=== PATIENT | male | born 1955 | race Caucasian/White ===

== ENCOUNTER 2016-12-10 10:11 | Outpatient (CLI) | payer OTHER ==
[~2016-12-10] VITALS: Ht 177.8 cm; Wt 120.9 kg
[~2016-12-10 10:11] MED LIST: ACTOS45 MG PO; ALDACTONE25 MG PO; ASPIR 8181 MG PO; CLARITIN10 MG PO; COLACE100 MG PO; CORICIDIN HBP1 EACH PO; CRANBERRY PO; DIOVAN HCT 3201 EACH PO; FEOSOL325 MG PO; FLOMAX0.4 MG PO; GLUCOPHAGE500 MG PO; HYTRIN1 MG PO; LANTUS SOL100 UNIT/1 SUB-Q; LEVAQUIN 250 M250 MG PO; LOPRESSOR50 MG PO; MAGNESIUM400 M1 PO; MICRONASE5 MG PO; MILK OF MA400 MG/5 M PO; MYLANTA (MAG-AL30 ML PO; NEURONTIN100 MG PO; NIASPAN500 MG PO; NORCO 5-325 MG1 TAB PO; NORVASC5 MG PO; OSTEO BI-FLEX1 EAC1 PO; PRILOSEC40 MG PO; PROAIR HFA8.5 GM INH; SLOW-MAG (64 MG1 TAB PO; THERAGRAN-M1 TAB PO; TYLENOL EXTRA500 MG PO; VITAMIN B-12500 MCG PO; VITAMIN C500 M1 PO; ZANTAC 7575 MG PO; ZOCOR40 MG PO
--- NOTE | 2016-12-10 11:17 | NUR ---
Patient is 61 yo male admitted for outpatient blood transfusions. received chemo therapy last Tuesday. has been having dizziness for a couple of weeks. has bladder cancer. patient's in 10/2014 from cancer after short time from diagnosis to . patient was diagnosed 1 month after 's . patient has port with access noted in right chest. no erythema or edema noted at site. education is given as documented. patient denies questions at this time. call light is within reach. report given to TREVOR Forrest.
--- NOTE | 2016-12-10 19:27 | NUR ---
Two units PRBCs administered with premedication of Benadryl, Tylenol, and Lasix. Patient tolerated well. Ate lunch. Voided x2. Up w/ family assist. Port de-accessed prior to d/c home w/no change in prior meds, appointments, and activity.
[2017-03-31] MEDS ORDERED: CULTURELLE1 CAP PO (17:16)
[2017-03-31] MEDS ORDERED: MAGNESIUM400 M1 PO (17:17)
[2017-04-07] MEDS ORDERED: DOXYCYCLINE100 MG PO (15:45)
[2017-04-07] MEDS ORDERED: VELTASSA8.4 GM PO (15:47)
[2017-05-17] MEDS ORDERED: CIPRO500 MG PO (15:17)
[2017-05-17] MEDS ORDERED: TYLENOL EXTRA500 MG PO (15:19)
== END 2016-12-10 18:00 | disposition disaster alternative care site (69) ==
LOC: GMSU 10:11 → GMIS 10:11
DX: C67.9 Malignant neoplasm of bladder, unspecified (principal); D70.1 Agranulocytosis secondary to cancer chemotherapy; R11.0 Nausea
CPT/HCPCS: J1200; J1940; J7050; P9016

== ENCOUNTER 2017-02-16 14:07 | Inpatient (IN) | payer OTHER ==
[~2017-02-16] VITALS: Ht 177.8 cm; Wt 119.0 kg
--- NOTE | ~2017-02-16 | CON ---
PATIENT'S NAME: FARIDA VINSON [facility] AGE: 61 Y [address] ROOM: [address] [address] LOCATION: [facility] [place] ADMIT DATE: 02/17/2017 Consultation DISCHARGE DATE: FAMILY PHYSICIAN: SHYANN MIKE ATTENDING PHYSICIAN: SLIM SINGH CONSULTATION NOTE ADDENDUM: Problem #8: Anemia, etiology most likely secondary to anemia of malignancy and chronic kidney disease. Also might have a component of acute blood loss anemia. The patient currently has hemoglobin of 9.8. No signs of active bleeding. We will acquire iron workup. We will hold p.o. iron supplement as the patient has ileus and will cause constipation. To start iron supplement, when ileus improves. MD MARY ROMERO/armando /[id number] d: 02/19/17 1703 t: 02/20/17 0843, CONSULTATION REPORT
--- NOTE | ~2017-02-16 | CON ---
PATIENT'S NAME: FARIDA VINSON [facility] AGE: 61 Y [address] ROOM: [place] [address] LOCATION: [facility] [place] ADMIT DATE: 02/17/2017 Consultation DISCHARGE DATE: FAMILY PHYSICIAN: SHYANN MIKE ATTENDING PHYSICIAN: SLIM JAFFE CONSULTATION NOTE CHIEF COMPLAINT/REASON FOR CONSULTATION: Invasive urothelial carcinoma. HISTORY OF PRESENT ILLNESS: The patient is a 61-year-old gentleman with past medical history of hypertension; nonobstructive CAD; diabetes mellitus; chronic kidney disease, stage 3; and invasive urothelial carcinoma of the bladder, who presents here for surgical intervention for his invasive urothelial carcinoma of the bladder with Dr. Jaffe. The patient has a history of bladder cancer and was recently on chemotherapy and was admitted to our hospital on for creation of ileal conduit with urinary diversion with bilateral urethral re- implantations and also laparoscopic radical cystoprostatectomy. The patient tolerated the procedure well and was admitted to general medical floor for further care. The patient tolerated the procedure well. Had some ileus after surgery. The patient is ambulating without limitation. Has not had a bowel movement and has not had pass of gas for the past 2 days. Denies any nausea or vomiting, chest pain, fever, chills, or productive cough. He has mild abdominal pain around the surgical incision. However, treated adequately with his ENTRY LEVEL ACCOUNT EXECUTIVE. PAST MEDICAL HISTORY: 1. Hypertension. 2. Coronary artery disease, nonobstructive. 3. Diabetes mellitus, type 2. 4. Chronic kidney disease, stage 3. 5. Hyperlipidemia. 6. Bladder cancer. PAST SURGICAL HISTORY: 1. History of transurethral resection of bladder. 2. Recent creation of ileal conduit with urinary diversion with bilateral urethral re-implantations. FAMILY HISTORY: Father had prostate cancer. Mother had breast cancer. 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 Denies smoking. PATIENT'S NAME: FARIDA VINSON [facility] AGE: 61 Y [address] ROOM: [place] [address] LOCATION: [facility] [place] ADMIT DATE: 02/17/2017 Consultation DISCHARGE DATE: FAMILY PHYSICIAN: SHYANN MIKE ATTENDING PHYSICIAN: SLIM JAFFE MEDICATIONS: Please see MAR. REVIEW OF SYSTEMS: All systems have been reviewed and are negative except for what I mentioned in the HPI. PHYSICAL EXAMINATION: VITAL SIGNS: Temperature of 99.0, blood pressure of 144/75, heart rate 85, and respiratory rate 19. GENERAL APPEARANCE: The patient is alert and awake, lying on the bed. Using his incentive spirometer. The patient does not appear in acute distress. HEENT: Head; normocephalic and atraumatic. Eyes; sclerae nonicteric. Oral cavity; dry oral mucosa. Ears; no ear discharge. Nose; no nasal discharge. HEART: Regular rate and rhythm. No murmurs, rubs, or gallops. CHEST: Clear to auscultation bilaterally. ABDOMEN: Mild tenderness around the surgical incision. Surgical incision is clear, dry, and intact. Drain in place and ileal conduit also in place. Bowel sounds active. No guarding. No rebound tenderness. SKIN: Warm to touch. MUSCULOSKELETAL: Range of motion intact. No obvious joint effusion. ORACLE SOFTWARE ENGINEER: The patient is alert and oriented x3. Motor and sensory grossly intact. LABORATORY DATA: White blood cell count of 13.4, hemoglobin of 9.8, and platelets of 132,000. Potassium of 5.3, sodium of 139, creatinine of 1.8, BUN of 32, and CO2 of 23. Hemoglobin A1c of 8. ASSESSMENT AND PLAN: 1. Hyperkalemia. Potassium of 5.3. The patient with a history of chronic kidney disease with the recent surgery. Chronic kidney disease, stage 3. His creatinine is 1.8. The patient noted to have a potassium of 5.3. Etiology most likely secondary to use of spironolactone and ARB. We will discontinue valsartan and spironolactone. Check renal function panel in a.m. and to continue IV fluids. 2. Hypertension. Currently stable but, however, we will discontinue valsartan and spironolactone due to hyperkalemia and also discontinue hydrochlorothiazide as patient is receiving IV fluids and also hydrochlorothiazide; function decreases with chronic kidney disease. We will start the patient on amlodipine, to continue Lopressor. We will place on hydralazine as a p.r.n. 3. Diabetes mellitus, type 2. Hemoglobin A1c of 8. Currently Accu-Chek is stable. The patient is currently n.p.o. and on glyburide. We will PATIENT'S NAME: FARIDA VINSON [facility] AGE: 61 Y [address] ROOM: [id number] [place] [address] LOCATION: [facility] [place] ADMIT DATE: 02/17/2017 Consultation DISCHARGE DATE: FAMILY PHYSICIAN: SHYANN MIKE ATTENDING PHYSICIAN: SLIM JAFFE discontinue glyburide as patient is n.p.o. due to ileus. We will discontinue glyburide as patient is n.p.o. and for fear of hypoglycemic event. We will start the patient on his home medication of detemir. However, we will change it to 10 units instead of 15 units. We will start detemir 10 units at bedtime. Continue sliding scale. 4. Chronic kidney disease, stage 3. Creatinine 1.8 etiology most likely secondary to history of obstructive uropathy and diabetes mellitus, type 2. 5. Ileus most likely secondary to recent surgery. Abdomen is soft. Bowel sounds present. The patient is currently n.p.o. We will change IV fluids to D5 half. 6. Deep venous thrombosis prophylaxis. We will start the patient on heparin 5000 units b.i.d. 7. Diabetic neuropathy. Continue gabapentin. 8. Bladder cancer status post resection and ileal conduit. We will discontinue terazosin. Management per primary team. Greater than 50 minutes were spent in the patient's care. 50% of the time was spent on direct patient's care and consultation with Dr. Jaffe and primary physician. Assessment and plan was discussed with family and the patient. All questions were answered with satisfaction. MD MARY ROMERO/faithl /[id number] d: 02/19/171728 t: 02/26/171748, CONSULTATION REPORT
--- NOTE | ~2017-02-16 | DS ---
PATIENT'S NAME: FARIDA VINSON [facility] AGE: 61 Y [address] ROOM: [address] [address] [place] [facility] [place]: 02/17/2017 Discharge Summary DISCHARGE DATE: 02/26/2017 FAMILY PHYSICIAN: Crys Urena ATTENDING PHYSICIAN: Slim Singh ADMISSION DIAGNOSIS: Muscle invasive urothelial carcinoma of bladder. DISCHARGE DIAGNOSIS: Muscle invasive urothelial carcinoma of bladder. REASON FOR HOSPITALIZATION: The patient is a pleasant 61-year-old male, who was diagnosed with muscle invasive urothelial carcinoma. He did undergo neoadjuvant chemotherapy. The patient was explained the risks, benefits, indications, and alternatives, and wished to proceed with a radical cystectomy. PROCEDURES PERFORMED: 1. Robotic-assisted laparoscopic radical cystoprostatectomy. 2. Robotic-assisted laparoscopic bilateral pelvic lymph node dissection. 3. Creation of ileal conduit urinary diversion with bilateral ureteral reimplantation. HOSPITAL COURSE: The patient was admitted on the above date and underwent the above-stated procedures. His hospital course was uneventful, and prior to discharge, he was having bowel function, pain was well controlled, and tolerating regular diet. CONDITION OF THE PATIENT ON DISCHARGE: Good. DISCHARGE INSTRUCTIONS: The patient received routine discharge instructions for the above-stated procedure. SLIM SINGH MD GP/modl /[id number] d: 03/01/17 0752 t: 03/02/17 1050, DISCHARGE SUMMARY
--- NOTE | ~2017-02-16 | OR ---
PATIENT'S NAME: FARIDA VINSON [facility] AGE: 61 Y [address] ROOM: [address] [address] [place] [facility] [place]: 02/17/2017 OR/Procedure Report DISCHARGE DATE: FAMILY PHYSICIAN: SHYANN MIKE ATTENDING PHYSICIAN: SLIM JAFFE SURGEON: Slim Jaffe MD DIRECTOR BUSINESS INTELLIGENCE: Vignesh Loaiza M.D. DATE OF PROCEDURE: 02/17/2017 PREOPERATIVE DIAGNOSIS: Invasive urothelial carcinoma of the bladder. POSTOPERATIVE DIAGNOSIS: Invasive urothelial carcinoma of the bladder. OPERATIONS/PROCEDURES PERFORMED: 1. Robotic-assisted laparoscopic radical cystoprostatectomy. 2. Robotic-assisted laparoscopic bilateral pelvic lymph node dissection. 3. Creation of ileal conduit, urinary diversion with bilateral ureteral reimplantation. ANESTHESIA ADMINISTERED: General endotracheal anesthesia. INDICATIONS FOR PROCEDURE: The patient is a pleasant 61-year-old male, who was recently diagnosed with muscle invasive urothelial carcinoma. He did recently undergo completion of neoadjuvant chemotherapy. The patient was explained the risks, benefits, indications, and alternatives to the above procedure and wished to proceed and consented freely. DESCRIPTION OF OPERATION: The patient was brought back to the operating room where he was placed on the OR table in the supine position. A surgical time- out was called where patient identification, surgical site, and procedure were then verified. We also did verify that the patient received an IV antibiotic within an hour of beginning the procedure. The patient then underwent successful administration of general endotracheal anesthesia. The patient was then moved and placed in a low lithotomy position. He was then prepped and draped in the usual sterile fashion using a Hibiclens prep for the genital area and a chlorhexidine prep for his abdomen. The patient was then placed in steep Trendelenburg. Also, Anesthesia did place an NG tube. A Quintero catheter was placed per urethra. I began by making a supraumbilical incision. The rectus fascia was grasped and elevated, and we pierced the peritoneum with a Veress needle and insufflated to 15 mmHg. We then passed an 8 mm non-bladed trocar easily into the peritoneum. We immediately passed the laparoscope and did not observe any injury to internal structure, so we placed additional trocars in the routine positions for the robotic cystectomy technique including an 8 mm and 12 mm trocar in the left abdomen as well as an 8 mm and 12 mm trocar in the right abdomen. The da Mitzi Xi robot was then docked and PATIENT'S NAME: FARIDA VINSON [facility] AGE: 61 Y [address] ROOM: [address] [place] [id number] [place] [facility] [place]: 02/17/2017 OR/Procedure Report DISCHARGE DATE: FAMILY PHYSICIAN: SHYANN MIKE ATTENDING PHYSICIAN: SLIM JAFFE used for the remainder of this portion of the procedure. I began by first incising the peritoneum deep in the rectovesical pouch. I immediately identified the vas deferens and seminal vesicles and these organs were carefully dissected free. I then swept the perirectal fat off the posterior aspect of the prostate. I then turned my attention to mobilizing the right ureter, which was identified crossing just over the iliac vessels. The ureter was then freed down to the level of the bladder and Weck clips were placed and the ureter was divided at the level of the bladder. I did send off a distal margin of the right ureter for frozen section analysis, which came back negative for malignancy. I then incised the peritoneum lateral to the medial umbilical ligaments on the right side as well as dissecting down to the endopelvic fascia. I then turned my attention to the right bladder vascular pedicle and this was carefully taken down with a robotic laparoscopic stapling device. I continued this dissection down along the base and right lateral aspect of the prostate taking care to sweep off some of the levator musculature. The bladder pedicle was now completely divided on the right. I then turned my attention to the left hand side. The left ureter was freed down to the level of the bladder after it was identified just crossing over the iliac vessels. Once that was freed up down to the bladder, Weck clips were placed and the ureter was divided at the level of the bladder. I also did send off a distal margin of the left ureter for frozen section analysis, which came back negative for malignancy. I then incised the peritoneum lateral to the medial umbilical ligaments on the left side as well as dissecting down to the endopelvic fascia. I then turned my attention to the left bladder vascular pedicle and this was carefully divided using the laparoscopic stapling device. This dissection was continued down along the base and left lateral aspect of the prostate taking care to sweep off some of the levator musculature. I then continued on by mobilizing the bladder and divided the urachus with electrocautery. I continued in the space of Retzius until I identified the periprosthetic fat. The endopelvic fascia was incised on the lateral dissections. Any remaining levator musculature was swept off the prostate from base to apex. I then proceeded to dissect down to the prostatic apex. Vascular control of the dorsal venous complex was obtained using the robotic laparoscopic stapling device. After we completely divided the dorsal venous complex, hemostasis again appeared to be adequate and I further dissected down isolating the urethra. I then divided the urethra distal to the prostatic apex. The remaining attachments to the apical prostate were then divided and then now we had the prostate and bladder completely freed and detached. I inspected for hemostasis, which was adequate. There did not appear to be any injury to surrounding structures including the rectum. I then turned my attention to perform a bilateral pelvic lymph node dissection. The borders out laterally included the genitofemoral nerve and superiorly to the branching of the common iliac vessels, then carrying this down inferiorly to the obturator nerve taking care to preserve the nerve itself. The dissection was further carried out to the PATIENT'S NAME: FARIDA VINSON [facility] AGE: 61 Y [address] ROOM: [place] [address] [place] [facility] [place]: 02/17/2017 OR/Procedure Report DISCHARGE DATE: FAMILY PHYSICIAN: SHYANN MIKE ATTENDING PHYSICIAN: SLIM JAFFE of the ramona of Raghavendra. The lymph node packets were labeled and retrieved and sent for pathologic analysis. I then began by creating a tunnel for the left ureter along the sacral promontory underneath the colonic mesentery. The ureter was then pulled through the tunnel. We had created and it appeared that we had adequate length on the left ureter after it was mobilized. A suture tag was then placed on the left ureter. We then undocked the robot and lengthened our supraumbilical incisions, carrying this incision down around the umbilicus and opened up the fascia. We then removed the remaining specimen including the bladder, prostate, seminal vesicles, and pelvic lymph nodes. I also did place a ANDERS drain in the left 8 mm port site. We then brought the ureters up through our open incision as well as brought his ileum up through the incision. The ileocecal valve was identified. We pulled up a segment of the terminal ileum leaving approximately 15 cm to the ileocecal valve with a good arcade of blood vessels to the terminal segment. The mesentery was divided at that level. The ilium was stable. We then moved approximately 15 cm cephalad along the small bowel. The mesentery was divided at that level making sure that we had a good arcade to the conduit. Once again, the KYRA stapler was fired and the ileal segment was isolated. We then reestablished bowel continuity in our usual fashion using a KYRA stapler between the 2 limbs and a TA stapler across the top giving us a [id number] anastomosis. Stay sutures were placed at the end of the staple line. The mesenteric defect was also closed with a running Vicryl suture. We had a nice palpable anastomosis here. Attention was now turned to the ureteroileal anastomosis. The ureters were freshened up and spatulated. Using interrupted 4-0 Vicryl sutures, the ureteroileal anastomosis was completed bilaterally. The right and left ureters were anastomosed identically and gave a nice open anastomosis. A stoma had been previously marked. At that level, the skin and subcutaneous tissues were excised down to the fascia. The fascia was then incised in a cruciate fashion and we had room for 2 fingers. Stay sutures were placed at the level of the fascia with interrupted 2-0 Vicryl sutures. The distal end of the conduit was then brought out through the ostomy, being careful not to twist or put any tension on the anastomosis. It was then secured with the above-noted sutures. Of note, we also oversewed the staple line of the end of the conduit to keep the staple line out of contact with urine. The stoma was then matured in a miccosukee fashion using Vicryl suture. We had a nice healthy- appearing stoma putting out copious amounts of urine. A Candido-Whittington drain was then left in the pelvis and the abdominal incision was closed. Of note, the fascia had been closed with the PDS running suture and the skin with subcuticular suture, then covered with Dermabond. Local anesthetic was injected to all incision sites. The patient did tolerate the procedure well. The patient was then awoken from general anesthesia, where he was then extubated and transported to the recovery room in good condition. PATIENT'S NAME: FARIDA VINSON [facility] AGE: 61 Y [address] ROOM: [address] [address] [place] [facility] [place]: 02/17/2017 OR/Procedure Report DISCHARGE DATE: FAMILY PHYSICIAN: SHYANN MIKE ATTENDING PHYSICIAN: SLIM JAFFE COMPLICATIONS: None. ESTIMATED BLOOD LOSS: 200 mL. DRAINS: Indwelling ANDERS drain to bulb suction. FOLLOWUP PLAN: We will plan to admit the patient to the hospital to await return of bowel function prior to discharge home. SLIM JAFFE MD GP/faithl /[id number] CC: MD Bebeto Greene MD Kristen Dunbar, PA d: 02/18/170 t: 02/18/172054, OPERATIVE SUMMARY
--- NOTE | ~2017-02-16 | PUL ---
PATIENT'S NAME: FARIDA VINSON [facility] AGE: 61 Y [address] ROOM: [address] [address] [place] [facility] [place] 02/17/2017 Pulmonary DISCHARGE DATE: 02/26/2017 FAMILY PHYSICIAN: Crys Urena ATTENDING PHYSICIAN: Madi Jaffe NAME OF PROCEDURE: Overnight Pulse Oximetry DATE OF PROCEDURE: February 25 to February 26, 2017 REASON FOR EXAM: Nocturnal hypoxemia RESULTS: The test was performed on room air. The recording time was 10 hours, 24 minutes, and 16 seconds, with a total valid sampling time of 10 hours, 21 minutes, and 44 seconds. The highest pulse was 83, lowest pulse was 58, with a mean pulse of 69. The highest SpO2 was 100%, lowest SpO2 was 84%, with a mean SpO2 of 95%. The patient spent 1 minute and 4 seconds with SpO2 less than 89%, representing 0.2% of the total sleep time. The desaturation event index was normal at 2.5. PHYSICIAN INTERPRETATION: The patient does not have evidence of significant nocturnal hypoxia and would not qualify for supplemental oxygen as per Medicare criteria. MD LISETTE BAKER/merlin /[id number] dtt: 03/03/17 0729 , WANDA HERNANDEZ dtd: 03/02/17 1128
[2017-02-16] MEDS ORDERED: LEVEMIR FL100 UNIT/1 SUB-Q (14:45)
[2017-02-16] MEDS ORDERED: SANCTURA 20MG20 MG PO (14:47)
[2017-02-16] MEDS ORDERED: STOOL SOFTENER100 M1 PO (14:50)
[2017-02-16] MEDS ORDERED: CLARITIN10 MG PO (14:55)
[2017-02-16] MEDS ORDERED: SYSTANE 0.3-0.440 ML OPHTH (14:56)
[2017-02-16] MEDS ORDERED: ASPIRIN EC81 MG PO (15:41)
--- NOTE | 2017-02-17 17:15 | NUR ---
Patient arrived from surgery at 1440 to room 3206. Sleepy but arousable. VSS, on 3L O2 upon arrival but decreased to 2L. ANDERS drain had 65ml out since arrival. NG to L) nare, LIS, no output. Ileo conduit has drips of output, not charted in output. Midline incision, and port sites glued. ACHS accuchecks, mild sliding scale. Needs to ambulate 5 times a day, will get up to stand this shift.
--- NOTE | 2017-02-18 02:11 | NUR ---
SIGNIFICANT EVENT: Mildly hypertensive - 141 to 142 over 70 to 75, other VSS on 2L. Morphine REFINING ENGINEER demand only - 1 mg demand bolus, 8 minute lockout. 270 out of ANDERS so far. NPO with sips of water with pills. NG to L) nare to low intermittent suction, stop suction during and 1/2 hour after oral meds. Bladder and prostate ca is reason for this surgery - 2 glue sites to bilateral mid abd. Midline incision - all glued. PIV to L) lateral FA infusing NS at 125. Pleasant and cooperative with cares.
[2017-02-18 05:30] LABS: BASOPHIL % 0.1 %; EOSINOPHIL # 0.1 K/uL (0.0-0.5); EOSINOPHIL % 0.7 %; HEMATOCRIT 31.6 % (37.0-53.0); HEMOGLOBIN 10.3 g/dL (11.0-16.0); IMMATURE GRANULOCYTE # 0.1 K/uL (0.0-0.3); IMMATURE GRANULOCYTE % 0.8 %; LYMPHOCYTE # 0.6 K/uL (0.8-4.0); LYMPHOCYTE % 3.8 %; MCHC 32.6 gm/dL (32.0-36.5); MCV 101.3 fl (83.0-98.0); MONOCYTE # 1.6 K/uL (0.0-1.0); MPV 9.2 fl (9.4-12.4); NEUTROPHIL # (ANC) 13.1 K/uL (1.4-9.0); NEUTROPHIL % 84.6 %; NRBC % 0 /100WBC (0-0.00); PLATELET COUNT 147 K/uL (150-450); RBC 3.12 M/uL (3.50-5.50); RDW-CV 15.4 % (11.9-14.6); WBC 15.6 K/uL (4.0-11.0)
[2017-02-18 05:45] LABS: ANION GAP 12.8 (10.0-19.0); CALCIUM 7.6 mg/dL (8.5-10.5); CREATININE 1.9 mg/dL (0.6-1.3); POTASSIUM 4.8 mMol/L (3.7-5.1)
--- NOTE | 2017-02-18 10:54 | NUR ---
Diabetes center note: 1030 Visited with patient and daughter regarding Diabetes management. Current A1C is 8% 02/18/17. Patient recently has received chemo for his bladder cancer and 02/17/17 under went surgery for ileal conduit, patient reports that he has been under "alot of physical stress". Does have a meter at home and occasionally checks his blood sugars, recommended that patient increase frequency of testing blood sugars, and rational for obtaining and maintaining proper control of sugars to assist in reducing risks of complications related to diabetes, heart, eyes, kidneys, nerves. Patient states understanding. Patient has seen Nayana Thompson RN at [facility] in [place], [place] for Diabetes Education and agrees to continue to follow up with her after dismissal. 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 Patient has been taking Levemir 30 units daily at home and Micronase 10 mg daily. CDE states that because of health issues and physical stress, we may need to add a rapid acting insulin, Novolog to his home insulin regimen also. Diabetes management booklet provided to review and Survival skills checklist is provided to daughter and patient to complete, anticipate patient will be here several days, will continue to trend blood sugars and assess educational needs.
--- NOTE | 2017-02-18 11:15 | NUR ---
SPOKE TO PATIENT AND DAUGTHER ENDY,REGARDING CM AND OUR ROLE. PATIENT LIVES ALONE IN OWN HOME HIS DAUGHTER ENDY AND FAMILY LIVE NEAR BY AND THEY ARE PLANNING ON CHEKCING ON HIM ONCE HE GETS HOME AND CAN HELP HIM NEEDED. PATIENT DOES NOT ANTICIPATE ANY DISCHARGE NEEDS AT THIS TIME. CM WILL FOLLOW NEEDED.
--- NOTE | 2017-02-18 13:44 | NUR ---
Diabetes Center note: 1300 Patient is currently sleeping and daughter states they have not started working on the Survival Skills checklist. CDE offered to assist them, but they refuse at this time, Will check with patient next week to assess educational needs, as we anticipate patient will be here several days
--- NOTE | 2017-02-18 17:42 | NUR ---
Patient is alert and oriented, VSS, on 1L O2. NG tube is clamped, residual can be checked Q4 hours but not while he is sleeping. Morphine DIRECTOR OF OPERATIONS FOR THERAPY is set at demand only with 12 deliveries with 14 attempts. Had 205 out of his ANDERS and 725 out of his ileo conduit. ACHS accuchecks with no insulin given so far. OT and PT consulted and walked the patient to the door and back, he also was up in the chair for the majority of the day. Will take pills with sips of water, got a little nauseous with AM meds, has had no nausea since then. Possible DC of NG tube tomorrow.
--- NOTE | 2017-02-19 01:56 | NUR ---
SIGNIFICANT EVENT: Patient alert & oriented. Hypertensive - 159 to 182 over 79 to 83. HR 95 to 100. 93 to 98 on 1.5L. 98.9 to 99.9 oral temp. NG discontinued at approx 1900. NPO - sips of water with pills only. Midline incision and 2 upper abd lap sites glued. Ileoconduit draining pale pink urine. ANDERS has and 190 out so far this shift. Morphine SQL SERVER DBA has 1 mg demand only with 8 minute lockout. Moved back to chair at approx 0030. Daughter at bedside throughout shift. Pleasant and cooperative with cares.
[2017-02-19 05:52] LABS: BASOPHIL # 0.1 K/uL (0.0-0.2); BASOPHIL % 0.4 %; EOSINOPHIL # 0.2 K/uL (0.0-0.5); EOSINOPHIL % 1.7 %; HEMATOCRIT 30.5 % (37.0-53.0); HEMOGLOBIN 9.8 g/dL (11.0-16.0); IMMATURE GRANULOCYTE # 0.2 K/uL (0.0-0.3); IMMATURE GRANULOCYTE % 1.3 %; LYMPHOCYTE # 0.8 K/uL (0.8-4.0); LYMPHOCYTE % 6.2 %; MCH 32.8 pg (27.0-34.0); MCHC 32.1 gm/dL (32.0-36.5); MONOCYTE # 1.7 K/uL (0.0-1.0); MONOCYTE % 12.8 %; MPV 9.5 fl (9.4-12.4); NEUTROPHIL # (ANC) 10.4 K/uL (1.4-9.0); NEUTROPHIL % 77.6 %; NRBC % 0 /100WBC (0-0.00); PLATELET COUNT 132 K/uL (150-450); RBC 2.99 M/uL (3.50-5.50); RDW-CV 15.1 % (11.9-14.6); WBC 13.4 K/uL (4.0-11.0)
[2017-02-19 06:05] LABS: ANION GAP 12.3 (10.0-19.0); CALCIUM 8.1 mg/dL (8.5-10.5); CREATININE 1.8 mg/dL (0.6-1.3); POTASSIUM 5.3 mMol/L (3.7-5.1)
--- NOTE | 2017-02-19 16:53 | NUR ---
Significant Event: Pt continues to have the BOX OFFICE MANAGER. Etco2 have been 37-41. He is on room air, maintaining O2 sat of 90-96%. He rates his pain a 1-3 today. He has a ha felder drain to left lower abdomen. It has had 930ml of thin berry to dk pink fluid out. Dr. Jaffe notified of increased in output during his rounds this am. He states, "That is to be expected." Drsg to ANDERS was saturated and was changed. PT had a bath and shave. PT has a ileoconduit to right lower abdoment. Stoma pink and wnl. He had 1500ml out of yellow urine. His groin is reddened and excoriated. Nystatin powder ordered. He remains npo but has sips of water with his meds without increased nausea or pain. Bowel sounds were hypo to now present. He is belching but no flatus yet. Follow up:
--- NOTE | 2017-02-20 03:59 | NUR ---
Significant Event: Patient has done well, ambulated in hallway and stood at bedside. Had 2000 out of webber and 350 out of ANDERS drain. Used 9 demands of his morphine REPAIRER WELDING EQUIPMENT. Rating pain at 2. 02 at 1 liter, tried to titrate but 02 dipped so had to resume. No complaints of nausea. Slept in bed part of the night and in chair most of the night. Groin area very red and excoriated. Follow up:Continue to encourage activity.
[2017-02-20 05:18] LABS: BASOPHIL % 0.4 %; EOSINOPHIL # 0.3 K/uL (0.0-0.5); EOSINOPHIL % 2.2 %; HEMATOCRIT 29.4 % (37.0-53.0); HEMOGLOBIN 9.1 g/dL (11.0-16.0); IMMATURE GRANULOCYTE # 0.2 K/uL (0.0-0.3); IMMATURE GRANULOCYTE % 1.4 %; LYMPHOCYTE % 9.1 %; MCH 31.7 pg (27.0-34.0); MCV 102.4 fl (83.0-98.0); MONOCYTE # 1.6 K/uL (0.0-1.0); MONOCYTE % 13.9 %; MPV 9.4 fl (9.4-12.4); NEUTROPHIL # (ANC) 8.2 K/uL (1.4-9.0); NRBC % 0 /100WBC (0-0.00); PLATELET COUNT 133 K/uL (150-450); RBC 2.87 M/uL (3.50-5.50); RDW-CV 14.6 % (11.9-14.6); WBC 11.2 K/uL (4.0-11.0)
[2017-02-20 05:43] LABS: ALBUMIN 2.4 gm/dL (3.5-5.0); ANION GAP 10.9 (10.0-19.0); CALCIUM 8.7 mg/dL (8.5-10.5); CREATININE 1.6 mg/dL (0.6-1.3); POTASSIUM 4.9 mMol/L (3.7-5.1); TOTAL BILIRUBIN 0.5 mg/dL (0.0-1.5); TOTAL PROTEIN 5.9 g/dL (6.0-8.4)
--- NOTE | 2017-02-20 18:52 | NUR ---
Significant Event: Pt has rounded abdomen but does have some bowel sounds. Ileoconduit to right lower abdomen, 1700ml of urine output. He had 400ml of thin yellowish/red drainage from ANDERS drain. Pt continues to have Morphine INSTRUMENT FITTER infusing without difficulty. Pt rated his pain "1"-"3". Pt ambulated in the pascual and sat in recliner. Blood sugars have been 194, 216, and 164. Home glyburide dose resumed. Pt has an IV port in left chest.
--- NOTE | 2017-02-21 05:05 | NUR ---
Significant Event: Patient ambulated in hallway x 1, stood at side of bed and then went to chair with 1-2 assist. Has a EMAIL MARKETING MANAGER to demand only and has used 9 demands this shift. Alert and orientated, pleasant and cooperative with cares. 1250 out of ilestomy and 380 out of ANDERS drain. Still NPO, except for sips for po medications. Denies nausea. Accucheck at HS was 146. Bilateral groin reddened and excoriated. Follow up: Continue to monitor.
[2017-02-21 05:26] LABS: BASOPHIL # 0.1 K/uL (0.0-0.2); BASOPHIL % 0.7 %; EOSINOPHIL # 0.3 K/uL (0.0-0.5); EOSINOPHIL % 3.5 %; HEMATOCRIT 31.2 % (37.0-53.0); HEMOGLOBIN 9.2 g/dL (11.0-16.0); IMMATURE GRANULOCYTE # 0.2 K/uL (0.0-0.3); IMMATURE GRANULOCYTE % 2.2 %; LYMPHOCYTE # 0.9 K/uL (0.8-4.0); MCH 31.8 pg (27.0-34.0); MCHC 29.5 gm/dL (32.0-36.5); MONOCYTE # 1.2 K/uL (0.0-1.0); MONOCYTE % 12.8 %; MPV 9.8 fl (9.4-12.4); NEUTROPHIL # (ANC) 6.6 K/uL (1.4-9.0); NEUTROPHIL % 70.8 %; NRBC % 0 /100WBC (0-0.00); RBC 2.89 M/uL (3.50-5.50); RDW-CV 14.5 % (11.9-14.6); WBC 9.2 K/uL (4.0-11.0)
[2017-02-21 05:29] LABS: PLATELET COUNT 179 K/uL (150-450)
[2017-02-21 05:44] LABS: ALBUMIN 2.4 gm/dL (3.5-5.0); ANION GAP 10.9 (10.0-19.0); CALCIUM 8.7 mg/dL (8.5-10.5); CREATININE 1.6 mg/dL (0.6-1.3); POTASSIUM 4.9 mMol/L (3.7-5.1); TOTAL BILIRUBIN 0.5 mg/dL (0.0-1.5); TOTAL PROTEIN 6.1 g/dL (6.0-8.4)
--- NOTE | 2017-02-21 08:30 | NUR ---
Diabetes consult: Patient's blood sugars controlled with fasting value in the 140's. The patient is currently sleeping. Will continue to follow.
--- NOTE | 2017-02-21 16:59 | NUR ---
Significant Event: Ambulates with one assist. Morhine LABEL CODER with 12 demands/12 deliveries. Iliostomy with clear yellow urine. ANDERS with large amount serosanginous drainage. Accuchecks ACHS. BM last 6-15, Hypotensive bowel sounds. Remains NPO, may have sips of water when taking medications. Follow up:
--- NOTE | 2017-02-22 02:29 | NUR ---
SIGNIFICANT EVENT: Pt alert & oriented. Mild htn 145 to 150 over 72 to 77, other VSS - RA while awake, 1.5L at HS. IV to L) FA infusing D51/2 at 50. HS levemir held last night for HS BG of 84. NPO and sips of H2O only with meds. 1PA to ambulate/transfer. Morphine DEPARTMENT OF NATURAL RESOURCES OFFICER - 1 mg demand only, 8 min. lockout, no bolus and no max. Dressing change to ANDERS site - L) abd, has had 395 out so far this shift. Ileoconduit draining yellow urine. Pleasant and cooperative with cares.
[2017-02-22 05:04] LABS: BASOPHIL # 0.1 K/uL (0.0-0.2); BASOPHIL % 0.9 %; EOSINOPHIL # 0.4 K/uL (0.0-0.5); HEMATOCRIT 28.9 % (37.0-53.0); HEMOGLOBIN 9.1 g/dL (11.0-16.0); IMMATURE GRANULOCYTE # 0.4 K/uL (0.0-0.3); IMMATURE GRANULOCYTE % 4.3 %; LYMPHOCYTE % 10.7 %; MCHC 31.5 gm/dL (32.0-36.5); MONOCYTE # 1.3 K/uL (0.0-1.0); MONOCYTE % 13.6 %; MPV 9.5 fl (9.4-12.4); NEUTROPHIL # (ANC) 6.1 K/uL (1.4-9.0); NEUTROPHIL % 66.5 %; NRBC % 0 /100WBC (0-0.00); PLATELET COUNT 166 K/uL (150-450); RBC 2.84 M/uL (3.50-5.50); RDW-CV 14.3 % (11.9-14.6); WBC 9.2 K/uL (4.0-11.0)
[2017-02-22 05:07] LABS: MCV 101.8 fl (83.0-98.0)
[2017-02-22 05:25] LABS: ALBUMIN 2.2 gm/dL (3.5-5.0); ANION GAP 8.7 (10.0-19.0); CALCIUM 8.9 mg/dL (8.5-10.5); CREATININE 1.8 mg/dL (0.6-1.3); POTASSIUM 4.7 mMol/L (3.7-5.1); TOTAL BILIRUBIN 0.6 mg/dL (0.0-1.5); TOTAL PROTEIN 5.8 g/dL (6.0-8.4)
--- NOTE | 2017-02-22 16:20 | NUR ---
A-SCREENED D/T LOS S/P ILEAL CONDUIT. 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 PER CHART REVIEW; POST-OP ILEUS. (+)BS; LITTLE FLATUS. TAKING PO MEDS W/A SMALL AMOUNT OF WATER. NO C/O NAUSEA. HT: 70 IN. WT: 119.0 KG. BMI: 37.6 LABS: NA 141, K+ 4.7, GLU 86, BUN 31, LATHMAKER 1.8, ALB 2.2 MEDS: ZOFRAN, MORPHINE, PEPCID, D5, APRESOLINE, PROTONIX, COLACE, NEURONTIN, NOVOLOG (MILD SS). DIET RX: NPO (DAY #5) EST NUTR NEEDS: 1285-7210 KCALS (15-20 KCALS/KG) 113-150 GM PROTEIN (1.5-2.0 GM/KG) 1 ML FLUID/KCAL D-AT NUTRITION RISK R/INADEQUATE ORAL INTAKE R/T ALTERED GI FXN AEB RECENT SURGERY, NPO STATUS. I-IF ORAL DIET CANNOT BE RESUMED WITHIN 24-48 HOURS, RECOMMEND ALTERNATE ROUTE OF NUTRITION. M/E-GOAL: START PO DIET WITHIN 24-48 HOURS 1)F/U GI, DIET RX, AND POC IN 2 DAYS 2)ASSIST NEEDED
--- NOTE | 2017-02-22 16:37 | NUR ---
Significant event: Pt. is A&Ox3, VSS, titrated to RA at beginning of shift. On morphine ONLINE TUTOR 1 demand, 8 minute lockout, 7 demands/7 deliveries. L)FA IV infusing 50 D51/2NS. Remains NPO with sips for medications. No flatus, no bowel movement, active bowel sounds. Has ambulated through hallways 3x so far this shift. Up to chair for meals. ANDERS has 610 out, 1250 out of ileoconduit. Has R)port that is not accessed. Midline incision, 2 lap sites glued, open to air. Nystatin to scrotum, elevated for edema. New order to d/c glyburide and hold levemir. WOC supplies at bedside. Pt. using IS when awake. Daughter at bedside much of shift, left at 1630. Slept on and off throughout day.
--- NOTE | 2017-02-23 04:09 | NUR ---
Significant Event: Patient alert and oriented X4. Up with one person assist, walker and gait belt. NPO with mouth swabs and able to take sips with meds. Illeoconduit to R) abdomen hooked to webber bag. ANDERS 330 out. Morphine COVER REMOVER pump 6 deliveries 8 demands. 1mg demand 8 min lockout. Woc to change illeoconduit. Midline incision with 2 lap sites. Scrotal elevation. Not passing gas. Goal is to ambulate five times. Walked twice this shift. IV to L) forearm. Not passing gas yet. Follow up: Monitor bowel sounds
[2017-02-23 04:54] LABS: ALBUMIN 2.4 gm/dL (3.5-5.0); ANION GAP 11.9 (10.0-19.0); CALCIUM 9.1 mg/dL (8.5-10.5); CREATININE 1.8 mg/dL (0.6-1.3); POTASSIUM 4.9 mMol/L (3.7-5.1); TOTAL PROTEIN 6.4 g/dL (6.0-8.4)
--- NOTE | 2017-02-23 16:27 | NUR ---
Significant Event: Patient alert and oriented x3. VSS on RA. IV to the L)FA infusing 50 D51/2NS. Has R) chest port but is not accessed. On morphine BRIM ROUNDER-1mg demand only with 8 minute lockout. Patient had 5 demands with 5 deliveries for a total of 5mg of morphine this shift. ANDERS to left abdomen with 490 out. Ilileoconduit to right abdomen-connected to catheter bag with 900 out. ACHS ACCU checks today were 140 and 177 on a mild scale-did not require insulin. Nystatin to groin area. Changed dressing to ANDERS drain site. Patient was NPO this AM but was changed to clear liquid this afternoon. No BM today but reports having a lot of gas. Walked halls x5 today.
--- NOTE | 2017-02-24 05:16 | NUR ---
SIGNIFICANT EVENT: VSS. A&O X3. IV TO L) FA WITH D5 1/2 NS AT 50, MORPHINE TELEGRAPHIC TYPEWRITER REPAIRER AT 1MG DEMAND Q8MIN. 5 DEMANDS AND 5 DELIVERIES THIS SHIFT. ANDERS TO L) ABDOMEN DRAINING 440 THIS SHIFT. MEDIAL INCISION AND 2 LAPI SITES ON EACH SIDE OF ABDOMEN. ILEAL CONDUIT DRAINING LISA URINE 870ML. RATING PAIN FROM A 2-3. CLEAR LIQUID DIET, ACHS. TRANSFERS WITH 1 ASSIST, GAIT BELT AND WALKER.
[2017-02-24 05:44] LABS: ALBUMIN 2.3 gm/dL (3.5-5.0); ANION GAP 12.9 (10.0-19.0); CREATININE 1.8 mg/dL (0.6-1.3); POTASSIUM 4.9 mMol/L (3.7-5.1); TOTAL PROTEIN 6.4 g/dL (6.0-8.4)
--- NOTE | 2017-02-24 14:02 | NUR ---
Diabetes center note 1000 Checking on patient, as follow up from last week. Patient was provided the Diabetes Survival skills assessment form and asked daughter and patient to complete, this has not been completed yet. Patient was gone out of the room at the time of visit. Will check in with them later today. 1330 Patient is busy with WOC nurse at this time, so will attempt to assess educational needs at a later time.
--- NOTE | 2017-02-24 14:07 | NUR ---
A - NUTRITION FOLLOW-UP. ATTEMPTED TO VISIT PT BUT WORKING WITH PT. PER RECORD, WT STABLE X6 DAYS. HAS BOWELS SOUND, PASSING GAS, NO BOWELS MOVEMENT YET PER SHIFT REPORT. LABS: GLU 143, BUN 39, CREA 1.8, ALB 2.3, MG 1.7 NO NEW MEDS DIET: ADVANCED TO CLEAR LIQUID 02/23, INTAKE 0-25% X1 MEAL NOTED. EST NEEDS: 8607-2088 KCAL, 113-150 GRAMS PROTEIN, FLUID NEEDS: 1ML/KCAL D - INADEQUATE ORAL INTAKE RELATED TO SLOW IN DIET ADVANCEMENT SECONDARY TO ALTERED GI FUNCTION EVIDENCED BY NPO/CL X7 DAYS. I - WILL TRIAL ENSURE CLEAR BID; ENSURE ENLIVE BID ONCE DIET ADVANCES. M/E - GOAL: ADVANCE DIET TOLERATED IN 4-5 DAYS.
--- NOTE | 2017-02-24 15:11 | NUR ---
Significant Event: Patient has been up twice and ambulated in pascual. Patient also was up in chair until just after lunch. Rates pain at 4-5. Did have 1 BM this a.m. that was liquid brown, but this is patient's first stool and he is only on clear liquids. WOC nurse up and changed patient's appliance. Patient also has ANDERS drain to left lower quadrant. Patient has 2 stab sites bilaterally and a midline incision all closed with skin glue. Follow up: Continue to monitor.
--- NOTE | 2017-02-25 05:23 | NUR ---
Significant Event: Patient alert and orineted X4. Up with one assist, walker and gait belt. 2 lap sites and midline incision with skin glue. ANDERS drain and dressing to L) side, illeoconduit to R) side. Woc to come see blister underneath wafer today. Walked X2 this shift. Did not need oxygen this shift, satting in high 90s. BM yesterday, passing gas. Started on full liquid diet, but already had clear liquid supper so did not want any fulls. And supposed to be regular for breakfast. Morphine LINKER UP at 1mg demand every 8 minutes. IV infiltrated to L) forearm so port started to R) chest. Edema to scrotum noted. Follow up: Needs to walk 5 times daily
[2017-02-25 05:44] LABS: ANION GAP 14.5 (10.0-19.0); CALCIUM 8.8 mg/dL (8.5-10.5); CREATININE 1.6 mg/dL (0.6-1.3); POTASSIUM 4.5 mMol/L (3.7-5.1)
[2017-02-25 05:50] LABS: HEMATOCRIT 30.1 % (37.0-53.0); HEMOGLOBIN 9.3 g/dL (11.0-16.0); MCH 31.5 pg (27.0-34.0); MCHC 30.9 gm/dL (32.0-36.5); MPV 9.4 fl (9.4-12.4); RBC 2.95 M/uL (3.50-5.50); RDW-CV 14.4 % (11.9-14.6); WBC 12.3 K/uL (4.0-11.0)
[2017-02-25 05:54] LABS: PLATELET COUNT 256 K/uL (150-450)
[2017-02-25 06:23] LABS: ABSOLUTE NEUTROPHIL CT (ANC) 9.2 K/uL (1.4-9.0); BANDED NEUTROPHIL # 0.4 K/uL (0.0-0.1); BANDED NEUTROPHILS % 3 %; LYMPHOCYTE # 1.7 K/uL (0.8-4.0); LYMPHOCYTE % 14 %; MONOCYTE # 0.9 K/uL (0.0-1.0); SEGMENTED NEUTROPHIL # 8.9 K/uL (1.4-9.0); SEGMENTED NEUTROPHIL % 72 %
--- NOTE | 2017-02-25 13:13 | NUR ---
Diabetes Center note 1300 Dior, patient's daughter and patient had completed the Diabetes Survival Skills checklist and a copy if placed on chart. Education provided as guided by the Checklist. Questions were answered and goals for blood sugars 80-160 set and discussed. Agrees to follow up in [place] with Nayana Thompson RN in their out patient program for on-going assistance in evaluating blood sugars control. We did again discuss the possibility of adding rapid acting insulin at meal times, or use of a sliding scale, so in the event that patient is dismissed over the weekend, patient is willing and able. Nurses would just have to give patient specific instructions. Patient and daughter are very pleasant to work with and ask appropriate questions. Patient does have a meter at home and CDE recommends that patient check blood sugars 2-4 times per day the first week after dismissal, so insulin adjustments can be made. Post chemo status now, but explained if he does have to have other chemo treatments in the future, that blood sugars again may increase. Current A1C 8 %, states understanding goal of 6.5 %.
--- NOTE | 2017-02-25 15:01 | NUR ---
Significant Event: Pt states pain tolerable with MS RAIL MANAGER. Has ambulated x3 so far this shift with 1 assist. ANDERS draining mod amt of sero/sang drainage. Ileoconduit had good urine output. Tolerating regular diet. Need stool for cdiff. Port to right chest d/i. Will receive IV mag 2gm x1. Follow up:
--- NOTE | 2017-02-26 04:31 | NUR ---
Pt. A&O. 1 assist with walker. 2 lap sites and midline incision with skin glue. ANDERS drain out. Ileoconduit on R) side with 550 output. Overnight trend ox done. Walked x1 this shift. Liquid BM - sent stool down to lab - no result yet. Denies pain/n/v. Regular diet. ACHS accuchecks. Gave 2 units at HS. HEALTH AIDE dc'd. Morphine ordered for breakthrough pain. Has not received any PRN this shift. ECOT2 monitoring equipment can be removed at shift change. Port to R) chest - saline locked. Plan to go home today.
[2017-02-26 05:43] LABS: HEMATOCRIT 29.2 % (37.0-53.0); HEMOGLOBIN 9.4 g/dL (11.0-16.0); MCH 32.4 pg (27.0-34.0); MCHC 32.2 gm/dL (32.0-36.5); MCV 100.7 fl (83.0-98.0); MPV 9.9 fl (9.4-12.4); PLATELET COUNT 276 K/uL (150-450); RDW-CV 14.3 % (11.9-14.6); WBC 12.6 K/uL (4.0-11.0)
[2017-02-26 06:01] LABS: ANION GAP 12.1 (10.0-19.0); CREATININE 1.6 mg/dL (0.6-1.3); POTASSIUM 4.1 mMol/L (3.7-5.1)
[2017-02-26 07:06] LABS: ABSOLUTE NEUTROPHIL CT (ANC) 8.7 K/uL (1.4-9.0); BANDED NEUTROPHIL # 0.9 K/uL (0.0-0.1); BANDED NEUTROPHILS % 7 %; LYMPHOCYTE # 1.4 K/uL (0.8-4.0); LYMPHOCYTE % 11 %; MONOCYTE # 0.8 K/uL (0.0-1.0); SEGMENTED NEUTROPHIL # 7.8 K/uL (1.4-9.0); SEGMENTED NEUTROPHIL % 62 %
[2017-02-26] MEDS ORDERED: ARTIFICIAL TEAR15 ML OPHTH (13:58)
[2017-02-26] MEDS ORDERED: NORCO 5-325 TA1 EACH PO (14:04)
--- NOTE | 2017-02-26 16:24 | NUR ---
DISMISSED PER W/C TO CAR FOR DISMISSAL WITH DAUGHTER ACCOMP.BY NURSE & DAUGHTER.DISCHARGE INSTRUCTIONS,MEDS,& TEACHING HANDOUTS EXPLAINED & GIVEN TO PT & DAUGHTER.VERBALIZED UNDERSTANDMENT.
[2017-03-31] MEDS ORDERED: CULTURELLE1 CAP PO (17:16)
[2017-03-31] MEDS ORDERED: MAGNESIUM400 M1 PO (17:17)
[2017-04-07] MEDS ORDERED: DOXYCYCLINE100 MG PO (15:45)
[2017-04-07] MEDS ORDERED: VELTASSA8.4 GM PO (15:47)
[2017-05-17] MEDS ORDERED: CIPRO500 MG PO (15:17)
[2017-05-17] MEDS ORDERED: TYLENOL EXTRA500 MG PO (15:19)
== END 2017-02-26 16:24 | disposition disaster alternative care site (69) | DRG 654 ==
LOC: GPOC 14:07 → GMSU 02-17 05:16 → EDSTATUS 02-17 14:00 → GMSU 02-17 14:40
PROVIDERS: Hospitalist; Internal Medicine; ADMIT Urology
DX: C67.9 Malignant neoplasm of bladder, unspecified (principal); K91.3 Postprocedural intestinal obstruction; E11.42 Type 2 diabetes mellitus with diabetic polyneuropathy; E11.22 Type 2 diabetes mellitus with diabetic chronic kidney disease; N17.9 Acute kidney failure, unspecified; N18.3 Chronic kidney disease, stage 3 (moderate); E66.9 Obesity, unspecified; E11.319 Type 2 diabetes mellitus with unspecified diabetic retinopathy without macular edema; J30.9 Allergic rhinitis, unspecified; D64.81 Anemia due to antineoplastic chemotherapy; E87.5 Hyperkalemia; E78.5 Hyperlipidemia, unspecified; D63.1 Anemia in chronic kidney disease; F32.9 Major depressive disorder, single episode, unspecified; F41.9 Anxiety disorder, unspecified; E11.649 Type 2 diabetes mellitus with hypoglycemia without coma; M19.90 Unspecified osteoarthritis, unspecified site; I25.10 Atherosclerotic heart disease of native coronary artery without angina pectoris; N40.0 Benign prostatic hyperplasia without lower urinary tract symptoms; I12.9 Hypertensive chronic kidney disease with stage 1 through stage 4 chronic kidney disease, or unspecified chronic kidney disease; E11.65 Type 2 diabetes mellitus with hyperglycemia; Z79.4 Long term (current) use of insulin; Z98.1 Arthrodesis status
CPT/HCPCS: J0690; J1100; J1644; J2001; J2250; J2270; J2405; J3475; J7030; J7060

== ENCOUNTER 2017-03-08 15:30 | Inpatient (IN) | payer OTHER ==
[~2017-03-08] VITALS: Ht 177.8 cm; Wt 104.8 kg
--- NOTE | ~2017-03-08 | DS ---
PATIENT'S NAME: FARIDA VINSON [facility] AGE: 61 Y [address] ROOM: [id number] [place], [place] [address] LOCATION: GPCU ADMIT DATE: 03/08/2017 Discharge Summary DISCHARGE DATE: 03/15/2017 FAMILY PHYSICIAN: Crys Urena ATTENDING PHYSICIAN: Lenard Saldivar FINAL DIAGNOSES: 1. Severe sepsis secondary to pyelonephritis. 2. Acute kidney injury on stage 3 chronic kidney disease secondary to sepsis. 3. Metabolic acidosis. 4. Diabetes mellitus, type 2. 5. Iron deficiency anemia. 6. Essential hypertension. 7. Postoperative fluid collection in the pelvis. 8. Atrial fibrillation/flutter. HISTORY OF PRESENT ILLNESS: Please see the history and physical dictated by Dr. Saldivar for details of admission. In short, the patient was transferred from [facility] from the [facility] after presenting there with fever for the last 2 days. When he presented to the Emergency Room, there his temperature was 103. He had just had a surgical procedure the week prior with an ileal conduit. It was also noted on admission that he had acute kidney injury on chronic kidney disease felt to be secondary to the sepsis. LABORATORY DATA: On admission, sodium was 139 and got as high as 149 on the 8th; most prior to discharge was 145, potassium on admission was 5.4 and at discharge was 4.2, BUN on admission was 92 and at discharge was 20, and creatinine on admission was 3.6 and most prior to discharge was 1. Liver enzymes during the hospital stay were normal. Magnesium on admission was 2.4 and most prior to discharge was 1.6. Iron was 40, total iron binding capacity was 185, and percent saturation was 22. Hemoglobin A1c is 8. Vitamin B12 of 415 and folate of 14.2. TSH is 1.66. White blood cell count on admission was 20.8 with 89% neutrophils, hemoglobin on admission was 8.5 with hematocrit of 26.7, and platelet count of 197. Most prior to discharge white blood cell count was 5.4. Hemoglobin remained in the 8 range during the hospital stay and most prior to discharge was 8.4. Platelet count on discharge was 164. Procalcitonin on admission was 8.75, it jumped to 11.7, and then started to decrease down to 7.8. Urinalysis on admission showed 10 to 20 whites and 5 to 10 reds. Microbiology: Blood cultures here from March 10 were negative. Blood PATIENT'S NAME: FARIDA VINSON [facility] AGE: 61 Y [address] ROOM: [id number] [place], [place] [address] LOCATION: GPCU ADMIT DATE: 03/08/2017 Discharge Summary DISCHARGE DATE: 03/15/2017 FAMILY PHYSICIAN: Crys Urena ATTENDING PHYSICIAN: Lenard Saldivar cultures from [facility] were negative. DIAGNOSTIC STUDIES: CT scan of the abdomen and pelvis done on admission showed that there were changes of the bladder and prostate resection. There was a fluid collection on the right side of the patient's pelvis. He had mild hydronephrosis and streaky increased attenuation of the left perinephric fat, which was suspicious for pyelonephritis. Echocardiogram done showed that his left atrium was mildly dilated. He had mild pulmonary hypertension. Ejection fraction was normal. HOSPITAL COURSE: The patient was admitted to PCU with a diagnosis of sepsis felt to be secondary to a urinary source based upon his recent surgery. He was admitted and initiated on IV ceftriaxone. He was given aggressive IV hydration. His magnesium was noted to be low and he was given IV magnesium as well. He was put on sliding-scale insulin to control his blood sugars. A CT scan of the abdomen and pelvis was ordered to make sure that there was no evidence of an abscess. His initial potassium came back elevated. He did receive a dose of Kayexalate and received glucose, IV dextrose, and insulin to help bring the blood sugar down. He had significant acidosis, and so he was given IV fluids with bicarb. Invanz was added to his regimen. Blood cultures were not repeated here as they had just been drawn in [facility] prior to him coming down. He did show slow gradual improvement with the IV hydration. His creatinine did return to normal and eventually got to his baseline. He was able to eat, so we did do a NovoLog carb count to help control his blood sugars. We were able to start a regular diet. We did continue to monitor him closely. PT and OT did work with him and we did follow his hemoglobins. We did have some issue with blood pressure control and made some adjustments in his medication based upon that. Dr. Jaffe did see him from a Urology standpoint. He wanted us to repeat the CT scan. The repeat CT scan did actually show some improvement. He did continue to improve, and he was noted to have an arrhythmia. He did show episodes of ventricular tachycardia, had some atrial fibrillation/flutter, and Dr. Trotter was asked to see him. His potassium and magnesium were low at that point, so this was replaced. An echocardiogram was obtained. In the meantime, the patient was able to be switched to oral antibiotics. He eventually landed on meropenem, and was then changed to Cipro. His hemoglobin continued to be low. His iron studies returned indicating that he was iron deficient. He was given 2 doses of IV iron. It was felt that he was stable for discharge and could discharge to home. We did make arrangements for him to have Home Health to get ongoing physical therapy. We also wanted them to follow up for his kidney function, electrolytes, and his diabetic medications based upon adjustments. PATIENT'S NAME: FARIDA VINSON [facility] AGE: 61 Y [address] ROOM: [address] [place] [id number] LOCATION: GPCU ADMIT DATE: 03/08/2017 Discharge Summary DISCHARGE DATE: 03/15/2017 FAMILY PHYSICIAN: Crys Urena ATTENDING PHYSICIAN: Lenard Saldivar DISCHARGE INSTRUCTIONS: He is to follow up with his activity restrictions per his previous surgery restrictions. He will see Dr. Trotter in [place] on March 23 at 09:15. He is to see Dr. Jaffe in [place] at his [facility] on March 28. He is to see Crys Urena in five to seven days, at which time, a renal panel and magnesium are to be drawn. Home Health will draw a renal panel and magnesium on March 17 and fax it to Crys Urena as well as to [facility] to me. MEDICATIONS: 1. Iron 325 mg daily with two ounces of orange juice. 2. Amlodipine 5 mg daily. 3. Aspirin 81 mg daily. 4. Colace 100 mg twice daily. 5. Cipro 500 mg twice daily for seven days. 6. Lopressor 50 mg twice daily. 7. Prilosec 40 mg twice daily. 8. MiraLAX 17 g twice daily. 9. Florastor 250 mg twice daily for fourteen doses while he is on the antibiotic. 10. Albuterol inhaled two puffs every 6 hours as needed for shortness of breath. 11. Vitamin C 500 mg twice daily. 12. Neurontin 100 mg twice daily. 13. Micronase 10 mg once daily. 14. Multivitamin daily. 15. Niaspan 500 mg at bedtime. 16. Osteo Bi-Flex one twice daily. 17. Zocor 40 mg daily. 18. Zantac 75 mg as needed for indigestion. 19. Diovan HCT 320/12.5 one tablet daily. 20. Maalox 30 mL every night at bedtime as needed. 21. Claritin 10 mg daily. 22. Systane eye drops two drops twice daily as needed. 23. Artificial tears 2 drops twice daily as needed. 24. Levemir 2 units at bedtime for blood sugars greater than 250. I did discuss this with Crys Urena as well as Dr. Trotter. VERÓNICA ALLEN MD LAW/modl PATIENT'S NAME: FARIDA VINSON [facility] AGE: 61 Y [address] ROOM: [place] [address] [facility] AD[facility] DATE: 03/08/2017 Discharge Summary DISCHARGE DATE: 03/15/2017 FAMILY PHYSICIAN: Crys Urena ATTENDING PHYSICIAN: Lenard Saldivar /[id number] CC: KARY Evans MD Garrett Pohlman, MD d: 03/16/17 0355 t: 03/17/17 1830, DISCHARGE SUMMARY
--- NOTE | ~2017-03-08 | CON ---
PATIENT'S NAME: FARIDA VINSON [facility] AGE: 61 Y [address] ROOM: [place] [address] LOCATION: GPCU ADMIT DATE: 03/08/2017 Consultation DISCHARGE DATE: FAMILY PHYSICIAN: SHYANN MIKE ATTENDING PHYSICIAN: GREGOR CARLOS DATE OF CONSULTATION: 03/09/2017 REASON FOR CONSULT: Buttocks redness. HISTORY OF PRESENT ILLNESS: This is a pleasant 61-year-old male patient who was admitted to [facility] with urosepsis. He has a history of bladder cancer and is status post prostatectomy with ileal conduit placement by Dr. Jaffe. The [facility] RNs are familiar with the patient. The patient also has a history of coronary artery disease, hypertension, hyperlipidemia, and chronic kidney disease. He notes "mild" buttocks pain. Nursing is applying Aloe Avalon to the site. He does note frequent stools due to the administration of Kayexalate. He is not sure how long his buttocks shearing has been present, but thinks it was present on his last admission. He notes his abdominal wounds are healing nicely since his surgery. He denies fevers, chills, or sweats. He does endorse nausea and a poor oral intake. He denies chest pain or shortness of breath. He admits to weakness, but notes it has improved since yesterday. The patient is pleasant with cares. PAST MEDICAL HISTORY: Bladder cancer, BPH, anxiety, hypertension, hyperlipidemia, arthritis, GERD, depression, and type 2 diabetes mellitus. PAST SURGICAL HISTORY: Tonsillectomy, right carpal tunnel surgery, wisdom teeth extraction, port placement, and recent prostatectomy with ileal conduit placement. FAMILY MEDICAL HISTORY: Per previous records, mother suffered from breast cancer and father suffered from prostate cancer. SOCIAL HISTORY: The patient lives in [place], [place]. He denies tobacco use. ALLERGIES: TRAMADOL. PATIENT'S NAME: FARIDA VINSON [facility] AGE: 61 Y [address] ROOM: [address] [address] LOCATION: GPCU ADMIT DATE: 03/08/2017 Consultation DISCHARGE DATE: FAMILY PHYSICIAN: SHYANN MIKE ATTENDING PHYSICIAN: GREGOR CARLOS CURRENT MEDICATIONS: Please refer to the medication administration record. REVIEW OF SYSTEMS: Pertinent positives addressed in the HPI and all the rest are negative. PHYSICAL EXAMINATION: VITAL SIGNS: Temperature 99.2, pulse 85, respirations 18, blood pressure 122/57, and pulse oximetry 94% on room air. Height 5 feet 10 inches and weight 106.0 kg. GENERAL: The patient is alert and oriented x3. Appears slightly anxious. Pale. HEENT: Head is normocephalic and atraumatic. Oral mucosa intact. NEUROLOGICAL: Grossly nonfocal. Steady gait noted. EXTREMITIES: Deferred. SKIN: To the patient's gluteal crease and buttocks, he has blanchable redness with evidence of skin shearing. No open areas noted. Area tender to touch. No drainage. The patient has a midline abdominal scabbed incision. No erythema. The patient has ileal conduit to his right mid quadrant with appliance intact. Groin folds intact. LABORATORY DATA: White blood cell count 21.1, hemoglobin 8.9, hematocrit 28.6, and platelets 190. Sodium 138, potassium 4.7, chloride 115, bicarbonate 14, BUN 90, creatinine 3.4, glucose 167, and GFR 18. Procalcitonin 11.37. ASSESSMENT AND PLAN: Again, this is a pleasant 61-year-old male patient who was admitted to [facility] with urosepsis. Wound care consult to evaluate buttocks shearing and to follow along with his ostomy. 1. Gluteal crease/buttocks shearing. No evidence of pressure ulcers. Discussed shearing and friction prevention. I instructed Nursing to apply Aloe Avalon q.i.d. and p.r.n. to the site. Nursing is to place an Iris cushion to the chair. The patient is to re-position himself every 2 hours in bed to prevent pressure ulcer formation. 2. Bladder cancer, status post prostatectomy with placement of ileal conduit. [facility] nurses will follow ostomy during hospitalization. 3. Urosepsis. Hospitalist managing. 4. Acute kidney injury on chronic kidney injury, stage 3. Hospitalist managing. LANDON LARSON APRN FOR MOOSE LUIS MD PATIENT'S NAME: FARIDA VINSON [facility] AGE: 61 Y [address] ROOM: [address] [address] LOCATION: [facility] ADMIT DATE: 03/08/2017 Consultation DISCHARGE DATE: FAMILY PHYSICIAN: SHYANN MIKE ATTENDING PHYSICIAN: GREGOR CARLOS /[id number] d: 03/09/17 1223 t: 03/16/17 1630, CONSULTATION REPORT
--- NOTE | ~2017-03-08 | CON ---
PATIENT'S NAME: FARIDA VINSON [facility] AGE: 61 Y [address] ROOM: [place] [address] LOCATION: GPCU ADMIT DATE: 03/08/2017 Consultation DISCHARGE DATE: FAMILY PHYSICIAN: SHYANN MIKE ATTENDING PHYSICIAN: GREGOR CARLOS REFERRING PHYSICIAN: SLIM JAFFE MD REASON FOR CONSULT: Runs of atrial fibrillation and possible ventricular tachycardia. HISTORY OF PRESENT ILLNESS: This is a 61-year-old gentleman who was admitted to the hospital with complaints of fever, pyelonephritis, as well as sepsis. He recently underwent a cystoprostatectomy with bilateral lymph node dissection on February 17 with creation of an ileostomy. This was done due to bladder cancer. He has been feeling much better, but on telemetry was noted to have runs of atrial fibrillation as well as questionable ventricular tachycardia. He carries a history of nonobstructive coronary artery disease per left heart catheterization 2014, which showed a 50% LAD and 40% RCA. He also has a history of type 2 diabetes mellitus, hypertension, and hyperlipidemia. He had an echocardiogram done on February 09 showing a normal ejection fraction. He reports that he has been doing fairly well until he got this fever, and he had not felt any palpitations. He denies lightheadedness or dizziness. No presyncope or syncopal episodes. PAST MEDICAL HISTORY: 1. Diabetes mellitus type 2. 2. Nonobstructive coronary artery disease. 3. Essential hypertension. 4. Generalized arthritis. 5. Gastroesophageal reflux disease. 6. Depression. 7. Bladder cancer, receiving chemotherapy. 8. Anemia with chemo. PAST SURGICAL HISTORY: 1. Left heart catheterization, 02/08/2015. 2. T and A. 3. Right carpal tunnel surgery. 4. [place] teeth extraction. 5. He had a port placed for chemo. 6. TURB on 12/30/2014; second-look TURB on February 27, 2015, TURB on June 27, 2015. 7. Cystoscopy with bladder biopsy, 08/22/2015. 8. TURP and transurethral resection of the bladder tumor, 10/10/2015. PATIENT'S NAME: FARIDA VINSON [facility] AGE: 61 Y [address] ROOM: [place] [id number] LOCATION: GPCU ADMIT DATE: 03/08/2017 Consultation DISCHARGE DATE: FAMILY PHYSICIAN: SHYANN MIKE ATTENDING PHYSICIAN: GREGOR CARLOS 9. Cystoscopy with clot evacuation and fulguration, 10/12/2015. 10. Robotic-assisted radical cystoprostatectomy with bilateral pelvic node dissection with creation of an ileal conduit, urinary diversion with bilateral ureteral reimplantation, 02/17/2017. ALLERGIES: TRAMADOL. CURRENT MEDICATIONS: 1. Protonix 40 mg IV. 2. Aspirin 81 mg daily. 3. Cipro 500 mg b.i.d. 4. Colace 100 mg t.i.d. 5. Florastor 250 mg p.o. b.i.d. 6. Lopressor 25 mg b.i.d. 7. MiraLAX 17 g b.i.d. 8. Norvasc 5 mg p.o. daily. 9. Heparin 5000 units t.i.d. 10. NovoLog mild sliding scale. 11. Lasix is currently on hold. SOCIAL HISTORY: He was in 2014. 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 He has 2 children. The daughter who is very attentive. He does not smoke, drink, or use illicit drugs. FAMILY HISTORY: Positive for breast cancer, diabetes, as well as CVA. Mother had diabetes and Parkinson's as well as breast cancer. Father had CVA and bladder cancer. He has a brother but does not know his health history. REVIEW OF SYSTEMS: GENERAL: Currently, he denies any fevers or chills. Also on admission, he was chilling. No weight changes. EYES: He wears corrective lenses. EARS: No problems with hearing or ringing in the ears. NOSE AND SINUS: No epistaxis, rhinorrhea, nasal stuffiness. MOUTH: Negative for gingival bleeding. No complaints of sore throat or hoarseness. Teeth are in good repair. NECK: Negative for lymphadenopathy. No carotid bruits. PULMONARY: No cough or sputum production. No hemoptysis. CV: Per HPI. GI: Negative for nausea, vomiting, or diarrhea. No melena or hematochezia. GENITOURINARY: Per HPI history. MUSCULOSKELETAL: No complaints of arthralgias or myalgias. NEUROLOGIC: He does have some neuropathy. PATIENT'S NAME: FARIDA VINSON [facility] AGE: 61 Y [address] ROOM: [address] [place], [place] [address] LOCATION: GPCU ADMIT DATE: 03/08/2017 Consultation DISCHARGE DATE: FAMILY PHYSICIAN: SHYANN MIKE ATTENDING PHYSICIAN: GREGOR CARLOS LABORATORY DATA: CBC yesterday showed a WBC of 5.4, hemoglobin was 8.1, hematocrit 25.9, platelets 164. Glucose 103, BUN 24, creatinine 1.0, sodium 146, potassium 4.4, magnesium was 1.6. PHYSICAL EXAMINATION: VITAL SIGNS: Weight 104.8 kg, his height is 5 feet 10 inches, blood pressure is 153/89, heart rate is 70. HEENT: He is afebrile. SKIN: Warm, dry, and pink. HEENT: Pupils equal, round, and react briskly. NECK: Soft and supple. No lymphadenopathy. No thyromegaly. JVD is flat. LUNGS: Sounds are clear. CV: Regular with a normal S1, S2. ABDOMEN: Soft. Bowel sounds are present. EXTREMITIES: Show no peripheral edema. No clubbing. No cyanosis. ASSESSMENT: 1. Ventricular tachycardia. We did check the potassium and magnesium. Certainly could be related to hypomagnesium. We will replace his magnesium at this time 1 g. 2. Paroxysmal atrial fibrillation. We checked a TSH today and it was 1.66. The patient has had an overnight trend oximetry in the past that was normal. He is now in a normal sinus rhythm. We will discuss with Dr. Trotter for the need for antiarrhythmic therapy. 3. Nonobstructive coronary artery disease. This is stable at this time. The assessment and plan, history of present illness, and physical exam are per Dr. Trotter. We would like to thank Dr. Jaffe for allowing us to participate in this patient's care. VERNON PETE APRN FOR MD CARITO JEFF/armando /[id number] d: 03/14/17 2349 t: 03/16/17 1650, CONSULTATION REPORT
--- NOTE | ~2017-03-08 | HP ---
PATIENT'S NAME: FARIDA VINSON [facility] AGE: 61 Y [address] ROOM: [place] [address] LOCATION: GPCU ADMIT DATE: 03/08/2017 History & Physical DISCHARGE DATE: FAMILY PHYSICIAN: PHYSICIAN, UNKNOWN ATTENDING PHYSICIAN: GREGOR CARLOS DATE OF SERVICE: CHIEF COMPLAINT: Fever. HISTORY OF PRESENT ILLNESS: A 61-year-old gentleman with a past medical history of bladder cancer, status post laparoscopic-assisted prostatectomy about one week ago and ileal conduit formation by the Urology. He was at home when he started having fever in last two days, which at home went as high as 100.3. He came to the Emergency Department in his city and he was found to have temperature of 103, and his lab work were consistent with sepsis and he was transferred here for further medical care. On my encounter, he is saying that he is feeling much better now. His temperature is down now. He is not having any fever or any chills at this point. He did endorse having some mild tenderness in the abdomen, but did not endorse having nausea, vomiting, diarrhea, or constipation. On further inquiry, he denied any shortness of breath, any cough, any sputum production, any palpitation, any chest pain, any chest tightness, any headache, any dizziness, any trouble swallowing, any muscle pain, or any joint tenderness. REVIEW OF SYSTEMS: All other systems were reviewed and were negative, except what is mentioned in the HPI. PAST MEDICAL HISTORY: Significant for 1. Hypertension. 2. Coronary artery disease. 3. Non-obstructive type 2 diabetes mellitus. 4. Chronic kidney disease, stage 3. 5. Hyperlipidemia. 6. Bladder cancer, status post cystoprostatectomy as well as ileal conduit formation. PAST SURGICAL HISTORY: 1. History of transurethral resection of the bladder. 2. Recent creation of the ileal conduit with urinary diversion, with bilateral urethral reimplantation. PATIENT'S NAME: FARIDA VINSON [facility] AGE: 61 Y [address] ROOM: [address] [address] LOCATION: GPCU ADMIT DATE: 03/08/2017 History & Physical DISCHARGE DATE: FAMILY PHYSICIAN: PHYSICIAN, UNKNOWN ATTENDING PHYSICIAN: GREGOR CARLOS FAMILY HISTORY: Father has prostate cancer. Mother had breast cancer. 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 No ongoing toxic habits were noted. MEDICATIONS: Please see MAR. ALLERGIES: NO KNOWN DRUG ALLERGIES. PHYSICAL EXAMINATION: VITAL SIGNS: On the arrival to the floor were blood pressure of 117/50, respirations of 22, pulse of 82, saturating 97%, and temperature of 98.7. GENERAL: No acute distress. Alert and oriented x3. HEENT: Head: Atraumatic and normocephalic. Eyes: Nonicteric. No pallor. Oropharynx: Dry mucous membranes. CARDIOVASCULAR: S1 and S2. No murmurs, gallops, or rubs. LUNGS: Clear to auscultation bilaterally. ABDOMEN: Soft and tender in the umbilical region. Laparotomy as well as laparoscopic incision landers were noted. Bowel sounds are present. EXTREMITIES: No clubbing, cyanosis, or edema was noted. PSYCHIATRIC: Normal affect, mood, and speech. NEUROLOGICAL: Cranial nerves II through XII were intact. No motor or sensory deficit was noted. SKIN: No rashes or bruises. LABORATORY DATA: Lab work from outside facility showed a white count of 24 and hemoglobin of 9.5; sodium was 135, potassium was 5.5, chloride was 106, bicarbonate was 12, BUN was 17, creatinine was 3.7 which is usually 1.9, calcium was 9.4, and magnesium is 1.7. UA was grossly positive for an acute cystitis. ASSESSMENT: 1. Severe sepsis secondary to urinary tract infection. 2. Acute pyelonephritis. 3. Type 2 diabetes mellitus. 4. Hyperkalemia. 5. Anion gap metabolic acidosis. 6. Acute kidney injury on chronic kidney disease, stage 3. 7. Anemia of chronic disease secondary to diabetes and chronic kidney disease. 8. Hypertension, essential. PATIENT'S NAME: FARIDA VINSON [facility] AGE: 61 Y [address] ROOM: [address] [place] [id number] LOCATION: GPCU ADMIT DATE: 03/08/2017 History & Physical DISCHARGE DATE: FAMILY PHYSICIAN: PHYSICIAN, UNKNOWN ATTENDING PHYSICIAN: GREGOR CARLOS 9. Bladder cancer, status post cystoprostatectomy as well as status post ileal conduit. PLAN: The patient will be admitted to inpatient. He has already received 1 L of IV fluids as well as one dose of Zosyn. We will continue with the IV resuscitation for sepsis protocol. We will give another liter of fluid. Two sets of blood cultures have been obtained at the outside facility, which we will obtain results in 2 days. Urinalysis has also been done. We will change the antibiotics from Zosyn to ceftriaxone at this point. We will monitor the I's and O's and see how urine output is like and decide further IV hydration. We will repeat the CBC and BMP. I did call Urology, Dr. Wilhelm, who is a colleague of Dr. Jaffe. Notify him that the patient is present here, and they will see the patient. We will get an ultrasound of the kidney if the patient is not getting better in terms of his EDIN. Sliding-scale insulin for the diabetes and diabetic diet. Activity, as tolerated. The patient is full code. MD THERESA AVALOS/armando /[id number] D: T: [id number] HISTORY & PHYSICAL
--- NOTE | ~2017-03-08 | ECHO ---
Transthoracic Echocardiography Report (TTE) Demographics Patient Name FARIDA VINSON Date of Study 03/14/2017 Patient Number [id number] Visit Number [id number] Date of 1955 Room Number G6303 Gender Male Number Age 61 year(s) Referring Janna Dos Santos Rivet Sticker Gianna Elliott RDCS, Physician RVT Physician Interpreting Rose Marie Tate MD Third Cook Physician Supervising Ordering Rose Marie Tate MD, MD/MLP Physician Nurse Stress Bat Boy/Girl Conclusions Contractility Score Summary Normal Left Ventricular contractility was noted. Summary The left atrium is mildly dilated by LA volume index measurement. Trivial mitral regurgitation by color Doppler. Possible mitral annular calcification posterior leaflet. Elevated aortic velocity's due to LVOT gradient. There is mild pulmonary hypertension. The pulmonary pressure (RVSP) is 43 mmHg. Mild tricuspid regurgitation by color Doppler. Procedure Type of Study TTE procedure:2D Echocardiogram. Procedure Date Date: 03/14/2017 Start: 09:44 AM Study Location: Inpatient Portable Technical Quality: Adequate visualization Additional Indications:PFT Appropriate Use Criteria: 9 Patient Status: Routine Rhythm: Sinus tachycardia HR: 86 bpm BP: 154/69 mmHg Allergies - Other:(tramadol, lips swell). M-Mode/2D Measurements LV Diastolic Dimension: 5.58 cm LV Systolic Dimension: 3.49 cm LV Septum Diastolic: 1.25 cm LV PW Diastolic: 1.12 cm AO Root Dimension: 3.7 cm Cardiac Output: 14.21 l/min AV Cusp Separation: 2.3 cm RV Diastolic Dimension: 2.19 cm LA volume: 116 ml IVC Inspiration: 1.46 cm LVOT: 2.2 cm RV Base: 3.88 cm LVOT VTI: 43.5 cm RV Mid: 2.84 cm LV Stroke volume: 165.27 ml TAPSE: 2.36 cm TDI-S': 13.5 cm/s Doppler Measurements AV Peak Velocity: 2.28 m/s MV Peak E-Wave: 0.94 m/s AV Peak Gradient: 20.79 mmHg MV Peak A-Wave: 1.41 m/s AV Mean Gradient: 14 mmHg MV E/A Ratio: 0.67 LVOT Peak Velocity: 1.71 m/s MV P1/2t: 59 msec TR Gradient:39.69 mmHg PV Peak Velocity: 1.31 m/s Estimated RAP:3 mmHg PV Peak Gradient: 6.86 mmHg Estimated RVSP: 43 mmHg Estimated PASP: 42.69 mmHg E' Septal Velocity: 0.05 m/s A' Septal Velocity: 0.1 m/s E' Lateral Velocity: 0.07 m/s A' Lateral Velocity: 0.17 m/s MV E/E' Ratio: 12.2 Findings Left Ventricle The estimated left ventricular ejection fraction is 65%. Mild concentric left ventricular hypertrophy. Diastolic assessment reveals Grade I diastolic dysfunction. LVOT gradient of 3.45 with valsalva. Right Ventricle Normal right ventricle structure and function. Left Atrium The left atrium is mildly dilated Right Atrium The right atrium is mildly dilated. Mitral Valve Trivial mitral regurgitation by color Doppler. Possible mitral annular calcification posterior leaflet. Aortic Valve Elevated aortic velocity's due to LVOT gradient. Tricuspid Valve There is mild pulmonary hypertension. The pulmonary pressure (RVSP) is 43 mmHg. Mild tricuspid regurgitation by color Doppler. Pulmonic Valve No pulmonic valve regurgitation by color Doppler. Pericardial Effusion No evidence of pericardial effusion. Miscellaneous Visualized portions of the aortic root and ascending aorta appear normal in size. Pleural Effusion No evidence of pleural effusion. Signature dtt: Bebeto Trotter (cardio) dtd: 03/14/17 0944 Physician Self Edit
--- NOTE | ~2017-03-08 | CON ---
PATIENT'S NAME: FARIDA VINSON [facility] AGE: 61 Y [address] ROOM: [id number] [place], [place] [address] LOCATION: GPCU ADMIT DATE: 03/08/2017 Consultation DISCHARGE DATE: FAMILY PHYSICIAN: SHYANN MIKE ATTENDING PHYSICIAN: GREGOR CARLOS DATE OF CONSULTATION: 03/11/2017 REFERRING PHYSICIAN: SLIM SINGH MD CHIEF COMPLAINT: Fever. 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 The patient did undergo neoadjuvant chemotherapy and ultimately underwent operative intervention on February 17, 2017. He had underwent a robotic-assisted laparoscopic radical cystoprostatectomy, bilateral pelvic lymph node dissection, with creation of ileal conduit, urinary diversion with bilateral ureteral reimplantation. His hospital course was relatively uneventful and prior to discharge home, he was having regular bowel function. His pain was well controlled and he was tolerating regular diet. He was discharged home on February 26, 2017. The patient then states that around March 06, 2017, he began not feeling well and ultimately presented to the emergency room in [place] with complaints of fever to 103 Fahrenheit. His workup there was consistent with probable sepsis and he was then transferred down here to [facility] for further treatment. He had denied any nausea, vomiting, diarrhea, or constipation. He also had denied any shortness of breath, cough, palpitations, or chest pain. His white blood cell count upon arrival was elevated at 20.8. He was then started on broad-spectrum IV antibiotics and his white blood cell count had subsequently improved and today is down to 5.2. Also his serum creatinine level was elevated upon arrival at 3.6, which has also improved down to 1.5 today. He underwent a CT scan of his abdomen and pelvis during this hospitalization with findings consistent with possibly some [id number] left hydronephrosis with some increased attenuation in the left perinephric fat, consistent with possible pyelonephritis. He was also noted to have a fluid collection at the right side of his abdomen and pelvis, consistent with possibly some residual urine yet in his ileal conduit. This was a noncontrasted study, so somewhat limited in evaluating this pelvic fluid collection. The patient continues to feel better and is tolerating regular diet. He is passing flatus and did have a bowel movement the other day. The patient has no further questions or concerns at this time. PAST MEDICAL HISTORY: 1. Muscle invasive urothelial carcinoma of the bladder. PATIENT'S NAME: FARIDA VINSON [facility] AGE: 61 Y [address] ROOM: [place] [address] LOCATION: GPCU ADMIT DATE: 03/08/2017 Consultation DISCHARGE DATE: FAMILY PHYSICIAN: SHYANN MIKE ATTENDING PHYSICIAN: GREGOR CARLOS 2. Diabetes mellitus. 3. Hypertension. 4. Osteoarthritis. 5. Anemia. 6. Hyperlipidemia. 7. History of BPH. PAST SURGICAL HISTORY: 1. Wrist surgery. 2. Tonsillectomy. 3. Transurethral resection of bladder tumor, December 30, 2014. 4. Second-look transurethral resection of bladder tumor February 27, 2015. 5. Transurethral resection of bladder tumor, June 27, 2015. 6. Cystoscopy with bladder biopsy, August 22, 2015. 7. Transurethral resection of prostate and transurethral resection of bladder tumor, October 10, 2015. 8. Cystoscopy with clot evacuation and fulguration, October 12, 2015. 9. Transurethral resection of bladder tumor, October 10, 2015. 10. Robotic-assisted laparoscopic radical cystoprostatectomy, bilateral pelvic lymph node dissection, creation of ileal conduit urinary diversion with bilateral ureteral reimplantation, February 17, 2017. FAMILY HISTORY: The patient does report a family history of prostate cancer in his father who at the age of 76. SOCIAL HISTORY: The patient denies any tobacco use or alcohol use. 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 ALLERGIES: TO TRAMADOL. CURRENT MEDICATIONS: See attached hospitalization medication reconciliation. REVIEW OF SYSTEMS: A full 10+ point review of systems was performed with pertinent positive and negative findings included in history of present illness. All other systems were reviewed and are otherwise negative. PHYSICAL EXAMINATION: VITAL SIGNS: Stable. CONSTITUTIONAL: No acute distress. Hemodynamically stable. HEENT: Extraocular muscles intact. Mucous membranes moist. No drainage per PATIENT'S NAME: FARIDA VINSON [facility] AGE: 61 Y [address] ROOM: [place] [address] LOCATION: GPCU ADMIT DATE: 03/08/2017 Consultation DISCHARGE DATE: FAMILY PHYSICIAN: SHYANN MIKE ATTENDING PHYSICIAN: GREGRO CARLOS ears or nose. CARDIOVASCULAR: Good peripheral perfusion. RESPIRATORY: No audible wheezing or stridor. GASTROINTESTINAL: Abdomen is soft, nontender, nondistended. Ileal conduit stoma pink and patent, draining clear yellow urine output into the bag drainage. MUSCULOSKELETAL: Normal muscle tone and range of motion. SKIN: No rashes or open sores. NEUROLOGIC: No focal deficits noted. PSYCHIATRIC: Answers questions appropriately with normal affect. HEMATOLOGIC: No bruising or active sites of bleeding. IMPRESSION: 1. Probable urinary tract infection. 2. History of muscle invasive urothelial carcinoma status post recent cystoprostatectomy and creation of ileal conduit urinary diversion. PLAN: I had a long discussion today with the patient regarding my findings. We discussed the findings on CT scan with the fluid collection in his right lower abdomen and pelvis. I suspect that this was some residual urine in his ileal conduit but somewhat difficult to evaluate on a noncontrasted CT scan. I recommended further evaluation particularly if his creatinine level continues to improve with a contrasted CT IVP. We will then be able to get a better sense of the nature of this fluid collection and also to see if this is resolved/improved in the interim. Other consideration given patient history and location of fluid collection to include possible lymphocele. Regardless, the patient's clinical condition continues to improve on antibiotics and I will defer to the Hospitalist Team on transitioning him to an oral antibiotic pending urine culture sensitivities. The patient tentatively has follow up scheduled on March 18 in [facility]rology [facility]. The patient's questions and concerns were addressed. He has no further at this time. SLIM SINGH MD GP/armando /[id number] d: 03/12/17 1528 t: 03/13/17 1021, CONSULTATION REPORT
[~2017-03-08 15:30] MED LIST changes: +ARTIFICIAL TEAR15 ML OPHTH; +ASPIRIN EC81 MG PO; +LEVEMIR FL100 UNIT/1 SUB-Q; +NORCO 5-325 TA1 EACH PO; +SANCTURA 20MG20 MG PO; +STOOL SOFTENER100 M1 PO; +SYSTANE 0.3-0.440 ML OPHTH
[2017-03-08 17:48] LABS: BILIRUBIN URINE NEGATIVE (NEGATIVE); BLOOD URINE 50 /UL (NEGATIVE); COLOR URINE YELLOW (YELLOW); GLUCOSE URINE NEGATIVE (NEGATIVE); KETONE URINE NEGATIVE (NEGATIVE); LEUKOCYTES URINE 500 /UL (NEGATIVE); NITRITE URINE NEGATIVE (NEGATIVE); PROTEIN URINE 30 mg/dL (NEGATIVE); TURBIDITY URINE 3+ (CLEAR); UROBILINOGEN URINE NORMAL (NORMAL)
[2017-03-08 17:56] LABS: BACTERIA URINE MODERATE (NEGATIVE); EPITHELIAL URINE RARE #/HPF (NEGATIVE)
[2017-03-08 18:17] LABS: BASOPHIL # 0.1 K/uL (0.0-0.2); BASOPHIL % 0.2 %; HEMATOCRIT 26.7 % (37.0-53.0); HEMOGLOBIN 8.5 g/dL (11.0-16.0); IMMATURE GRANULOCYTE # 0.2 K/uL (0.0-0.3); LYMPHOCYTE # 0.6 K/uL (0.8-4.0); LYMPHOCYTE % 2.7 %; MCH 31.6 pg (27.0-34.0); MCHC 31.8 gm/dL (32.0-36.5); MCV 99.3 fl (83.0-98.0); MONOCYTE # 1.4 K/uL (0.0-1.0); MONOCYTE % 6.6 %; MPV 9.2 fl (9.4-12.4); NEUTROPHIL # (ANC) 18.7 K/uL (1.4-9.0); NEUTROPHIL % 89.5 %; NRBC % 0 /100WBC (0-0.00); RBC 2.69 M/uL (3.50-5.50); RDW-CV 14.8 % (11.9-14.6)
[2017-03-08 18:18] LABS: PLATELET COUNT 195 K/uL (150-450); WBC 20.8 K/uL (4.0-11.0)
[2017-03-08 18:35] LABS: CALCIUM 8.8 mg/dL (8.5-10.5); CREATININE 3.6 mg/dL (0.6-1.3); POTASSIUM 5.4 mMol/L (3.7-5.1)
[2017-03-08 18:37] LABS: ANION GAP 18.4 (10.0-19.0)
--- NOTE | 2017-03-08 18:49 | NUR ---
Significant Event:[facility] DRAINAGE BAG APPLIED TO HIS UROSTOMY END. 02 ROOM AIR. POWER PORT LEFT CHEST. UA SENT. WOC TO SEE. PT ALERT/ORIENTED VERY PLEASANT. ZOSYN FINISHED INFUSING FROM OTHER HOSP. TO CHANGE TO ROCEPHIN. LRS BOLUS STARTED THEN 150ML/HR. PT ONE ASST FEW FEET BUT IS WEAK. Follow up:
[2017-03-09 00:20] LABS: CALCIUM 9.2 mg/dL (8.5-10.5); CREATININE 3.4 mg/dL (0.6-1.3); POTASSIUM 4.7 mMol/L (3.7-5.1)
[2017-03-09 00:22] LABS: ANION GAP 13.7 (10.0-19.0)
--- NOTE | 2017-03-09 04:46 | NUR ---
Significant Event: A&Ox3, VSS on room air. SBP: 140-120s. HR: 80s-100s. Fevers, Max 103.4-97.2 tympanic. Bear hugger ordered for temps less than 95. Tylenol and Ice improved fevers. Right chest port with NS at 150ml for one liter, then can be SL. RN draw for labs. Transfers with 1PA. ACHS. NPO at 0000. Urostomy to webber bag. Bottom purple, encouraged to reposition, patient does shift weight on his own. Pleasant and cooperative with cares. Follow up: continue with plan of care.
[2017-03-09 06:20] LABS: BASOPHIL # 0.1 K/uL (0.0-0.2); BASOPHIL % 0.2 %; HEMATOCRIT 28.6 % (37.0-53.0); HEMOGLOBIN 8.9 g/dL (11.0-16.0); IMMATURE GRANULOCYTE # 0.2 K/uL (0.0-0.3); LYMPHOCYTE # 0.8 K/uL (0.8-4.0); LYMPHOCYTE % 3.9 %; MCH 31.1 pg (27.0-34.0); MCHC 31.1 gm/dL (32.0-36.5); MONOCYTE # 2.1 K/uL (0.0-1.0); MONOCYTE % 9.9 %; MPV 9.7 fl (9.4-12.4); NEUTROPHIL # (ANC) 17.9 K/uL (1.4-9.0); NRBC % 0 /100WBC (0-0.00); PLATELET COUNT 190 K/uL (150-450); RBC 2.86 M/uL (3.50-5.50); RDW-CV 14.9 % (11.9-14.6)
[2017-03-09 06:21] LABS: WBC 21.1 K/uL (4.0-11.0)
--- NOTE | 2017-03-09 12:32 | NUR ---
Diabetes center note: 0930 Visted with daughter, Lucrecia and patient. CDE is familiar with patient from hospitalization just a week ago, 02/25/17. We did discuss some education topics related to Diabetes at that time, and both patient and daughter deny any questions or concerns related to diabetes at this time. Patient is not felling well at the time of the visit, dont' anticipate that there will be any further need for education at this time, but both agree to inform nurses/Diabetes Center if needing any assistance with diabetes management. Discussed affects of sepsis/infection on overall diabetes management, will continue to trend blood sugars and make recommendations if necessary.
--- NOTE | 2017-03-09 17:15 | NUR ---
Introduced self and role of care management to pt and his daughter. He lives in [place] by himself but daughter lives only 4 miles away and grandson lives next door. HE had been doing pretty well at home and grandson got him a hospital bed for the living room and the cafe was delivering meals until he started having a fever. At this time the plan will still be home but they are open to home health care and are aware [facility] does a good job. WIll continue to follow and assist as needed.
--- NOTE | 2017-03-09 17:35 | NUR ---
Significant Event:Patient has rested in bed. Had clear liquid lunch, was able to take about 50%, no c/o nausea. Temp- 98.8,99.9,99.9. No Tylenol today. Is getting one liter of Bicarb at 150 ml/hr. Got one dose of Invanz. Had 1600 ml of urine out. WOC saw today, will be back to see tomorrow re: urostomy. SBP 120-140's. BMP. Mg, and Procal drawn, waiting for results. Are to be called to Dr. Sanderson. Follow up: Monitor temp, urine output, lab
[2017-03-09 17:46] LABS: CALCIUM 8.8 mg/dL (8.5-10.5); CREATININE 2.5 mg/dL (0.6-1.3); MAGNESIUM 2.4 mg/dL (1.8-2.6); POTASSIUM 3.8 mMol/L (3.7-5.1)
[2017-03-09 17:47] LABS: ANION GAP 15.8 (10.0-19.0)
--- NOTE | 2017-03-10 04:12 | NUR ---
Significant Event: A/OX3, VSS ON ROOM AIR, NO TEMPS THIS SHIFT. NO COMPLAINTS OF PAIN THIS SHIFT. PT. GETS UP SBA WITH WALKER TO BATHROOM, MODERATE BM'S X2 THIS SHIFT, PER PATENT. 1400mL OUT UROSTOMY. HAD SOME CLEAR LIQUIDS FOR SUPPER. WOC TO COME TODAY TO CHANGE UROSTOMY BAG, PT. WOULD LIKE TO SHOWER TODAY, SHAVED LAST NIGHT. RIGHT CHEST PORT IS SALINE LOCKED. COOL WASH CLOTH TO FORHEAD ALL SHIFT. Follow up: CONTINUE WITH POC.
[2017-03-10 04:57] LABS: ALBUMIN 2.4 gm/dL (3.5-5.0); CALCIUM 8.9 mg/dL (8.5-10.5); MAGNESIUM 2.2 mg/dL (1.8-2.6); PHOSPHORUS 3.1 mg/dL (2.5-4.9); POTASSIUM 3.8 mMol/L (3.7-5.1)
[2017-03-10 05:08] LABS: ANION GAP 15.8 (10.0-19.0)
[2017-03-10 05:58] LABS: HEMATOCRIT 25.7 % (37.0-53.0); MCH 30.8 pg (27.0-34.0); MCHC 31.1 gm/dL (32.0-36.5); MCV 98.8 fl (83.0-98.0); PLATELET COUNT 178 K/uL (150-450); RDW-CV 14.9 % (11.9-14.6)
[2017-03-10 06:54] LABS: ABSOLUTE NEUTROPHIL CT (ANC) 8.6 K/uL (1.4-9.0); BANDED NEUTROPHIL # 1.6 K/uL (0.0-0.1); BANDED NEUTROPHILS % 16 %; LYMPHOCYTE # 0.6 K/uL (0.8-4.0); LYMPHOCYTE % 6 %; MONOCYTE # 0.7 K/uL (0.0-1.0); SEGMENTED NEUTROPHIL % 70 %
--- NOTE | 2017-03-10 12:55 | NUR ---
I did fax referral to [facility] and spoke Diane and gave update.
--- NOTE | 2017-03-10 17:24 | NUR ---
Significant Event:Patient has been a little better today. Yogesh clear liquids, patient bella. fair. He doesn't want changed to anything else yet. started on PO Bicarb, and Norvasc. Has NS infusing at 250 ml/hr for 1L and then to run at 100 ml/hr.WOC here and changed urostomy wafer today. Took a shower this morning. Had 4 beats of V-Tach? this afternoon at 1630, asympromatic. Follow up:Hematest stools
[2017-03-11 03:35] LABS: ALBUMIN 2.3 gm/dL (3.5-5.0); CALCIUM 8.8 mg/dL (8.5-10.5); CREATININE 1.5 mg/dL (0.6-1.3); PHOSPHORUS 2.3 mg/dL (2.5-4.9); POTASSIUM 3.7 mMol/L (3.7-5.1)
[2017-03-11 03:55] LABS: ANION GAP 10.7 (10.0-19.0)
[2017-03-11 04:10] LABS: HEMATOCRIT 25.1 % (37.0-53.0); MCH 31.5 pg (27.0-34.0); MCHC 31.9 gm/dL (32.0-36.5); MCV 98.8 fl (83.0-98.0); MPV 9.4 fl (9.4-12.4); PLATELET COUNT 146 K/uL (150-450); RBC 2.54 M/uL (3.50-5.50); RDW-CV 14.7 % (11.9-14.6); WBC 5.2 K/uL (4.0-11.0)
--- NOTE | 2017-03-11 04:35 | NUR ---
Significant Event: Patient is A/Ox3. VSS on RA. Patient has been afebrile this shift, but hypertensive. Received orders for PRN IV labetalol and hydralazine. IV hydralazine given x1. Blood pressure to be checked hourly until 0800. No BM this shift. 1625 UOP. Evening blood sugar of 291 treated. No complaints of pain. Up 1-assist to bathroom with gait belt and walker. Follow up: Continue plan of care
[2017-03-11 04:46] LABS: LYMPHOCYTE # 0.7 K/uL (0.8-4.0); LYMPHOCYTE % 13 %; MONOCYTE # 0.3 K/uL (0.0-1.0); SEGMENTED NEUTROPHIL # 3.9 K/uL (1.4-9.0); SEGMENTED NEUTROPHIL % 75 %
[2017-03-11 04:47] LABS: BANDED NEUTROPHIL # 0.1 K/uL (0.0-0.1); BANDED NEUTROPHILS % 2 %
--- NOTE | 2017-03-11 15:10 | NUR ---
A - NUTRITION FOLLOW-UP LABS: NA 148, GLU 139, BUN 50, CREA 1.5, ALB 2.3, PO4 2.3 MEDS: MILD SSI, ZOFRAN DIET: CLEAR LIQUID SINCE 03/09. INTAKE 19% X8 MEALS ON CL. PT DOES NOT WANT TO ADVANCE DIET D/T FEELING POOR TO STOMACH STILL. DISLIKES ENSURE CLEAR, REQUESTED TO BE DISCONTINUED. MINIMAL ORAL INTAKE SINCE TUE/MON PER PT. TOWARDS THE END OF CONVERSATION, PT REQUESTED SOME CANTALOUPE. RELAYED MESSAGE TO RN THAT PT MIGHT BE READY TO ADVANCE DIET. EST NEEDS: [id number] KCAL, 75 GRAMS PROTEIN, FLUID NEEDS: 1ML/KCAL D - PT DECLINED NUTRITION INTERVENTION AT THIS TIME. I - PT DISLIKES ENSURE CLEAR. WILL TRIAL ENSURE ENLIVE BID ONCE DIET ADVANCED M/E - GOAL: ADVANCE DIET TOLERATED IN 3-5 DAYS. PLAN: F/U W/ DIET ADVANCEMENT, PO TOLERANCE AND ORAL SUPPLEMENT ACCEPTANCE.
--- NOTE | 2017-03-11 15:17 | NUR ---
Significant Event:A/O x 3, cooperative with cares. VSS. SLightly hypertensive this a.m. Gave PRN labetalol for SBP 187. Maintaine 140-160's SBP rest of shift. Up with stand by assist, walker and gait belt. Tolerates ambulation. Port to R) chest infusing .45 NaCl. Carbapenem changed IV to q 6 hours. Old incisions to abdomen, urostomy to R) abdomen with good yellow output. ACHS accucheck with carb count treated at lunch with 10 units novolog. Liquid diet per patient request. No stools today. No c/o pain. Follow up:Continue plan of care.
[2017-03-12 03:31] LABS: ALBUMIN 2.2 gm/dL (3.5-5.0); ALK PHOS 88 IU/L (33-138); ALT 55 IU/L (12-78); AST 54 IU/L (10-40); BLOOD UREA NITROGEN 34 mg/dL (6-24); CALCIUM 8.8 mg/dL (8.5-10.5); CO2 21 mMol/L (22-32); CREATININE 1.2 mg/dL (0.6-1.3); MAGNESIUM 1.8 mg/dL (1.8-2.6); PHOSPHORUS 2.2 mg/dL (2.5-4.9); POTASSIUM 3.8 mMol/L (3.7-5.1); TOTAL PROTEIN 6.1 g/dL (6.0-8.4)
[2017-03-12 03:33] LABS: ANION GAP 11.8 (10.0-19.0); CHLORIDE 120 mMol/L (96-110); ESTIMATED GFR (MDRD EQUATION) > 60; SODIUM 149 mMol/L (135-145); TOTAL BILIRUBIN 0.3 mg/dL (0.0-1.5)
[2017-03-12 03:35] LABS: BASOPHIL % 0.4 %; EOSINOPHIL # 0.4 K/uL (0.0-0.5); EOSINOPHIL % 6.6 %; HEMATOCRIT 25.9 % (37.0-53.0); HEMOGLOBIN 8.2 g/dL (11.0-16.0); IMMATURE GRANULOCYTE # 0.1 K/uL (0.0-0.3); IMMATURE GRANULOCYTE % 1.8 %; LYMPHOCYTE # 0.9 K/uL (0.8-4.0); LYMPHOCYTE % 15.5 %; MCH 31.4 pg (27.0-34.0); MCHC 31.7 gm/dL (32.0-36.5); MCV 99.2 fl (83.0-98.0); MONOCYTE # 0.7 K/uL (0.0-1.0); MONOCYTE % 12.3 %; MPV 9.4 fl (9.4-12.4); NEUTROPHIL # (ANC) 3.6 K/uL (1.4-9.0); NEUTROPHIL % 63.4 %; NRBC % 0 /100WBC (0-0.00); PLATELET COUNT 147 K/uL (150-450); RBC 2.61 M/uL (3.50-5.50); RDW-CV 14.8 % (11.9-14.6); WBC 5.6 K/uL (4.0-11.0)
--- NOTE | 2017-03-12 04:30 | NUR ---
Significant Event: Patient A/Ox3. VSS on RA. Afebrile. No complaints of pain this shift. Patient has slept well. IV meropenem x2. 1/2 NS @ 100ml/hr. Sodium is 149 this morning. Kidney function improving. BUN 34, Cr 1.2, GFR>60. IV hydralazine given for blood pressure >170. Only brought patient down to 160s. Follow up: Further adjust blood pressure meds? Home Tuesday?
--- NOTE | 2017-03-12 18:54 | NUR ---
PATIENT UP TO CHAIR AND BR W/ 1 ASSIST. VSS, SATS HIGH 90'S ON RA. INCREASED PO INTAKE TODAY. NO BM THIS SHIFT. GAVE MIRILAX, INCREASED COLACE. D/C'D IV FLUIDS. LABS ORDERED FOR AM.
[2017-03-13 06:12] LABS: BASOPHIL % 0.6 %; EOSINOPHIL # 0.4 K/uL (0.0-0.5); EOSINOPHIL % 8.2 %; HEMATOCRIT 25.9 % (37.0-53.0); HEMOGLOBIN 8.1 g/dL (11.0-16.0); IMMATURE GRANULOCYTE # 0.2 K/uL (0.0-0.3); LYMPHOCYTE # 1.2 K/uL (0.8-4.0); LYMPHOCYTE % 21.4 %; MCH 30.9 pg (27.0-34.0); MCHC 31.3 gm/dL (32.0-36.5); MCV 98.9 fl (83.0-98.0); MONOCYTE # 0.5 K/uL (0.0-1.0); MONOCYTE % 9.5 %; MPV 9.4 fl (9.4-12.4); NEUTROPHIL # (ANC) 3.1 K/uL (1.4-9.0); NEUTROPHIL % 57.3 %; NRBC % 0 /100WBC (0-0.00); PLATELET COUNT 164 K/uL (150-450); RBC 2.62 M/uL (3.50-5.50); RDW-CV 14.7 % (11.9-14.6); WBC 5.4 K/uL (4.0-11.0)
[2017-03-13 06:28] LABS: ALBUMIN 2.3 gm/dL (3.5-5.0); ALK PHOS 88 IU/L (33-138); ALT 59 IU/L (12-78); AST 39 IU/L (10-40); BLOOD UREA NITROGEN 24 mg/dL (6-24); CALCIUM 8.9 mg/dL (8.5-10.5); CO2 22 mMol/L (22-32); ESTIMATED GFR (MDRD EQUATION) > 60; POTASSIUM 4.2 mMol/L (3.7-5.1); TOTAL PROTEIN 6.1 g/dL (6.0-8.4)
[2017-03-13 06:30] LABS: ANION GAP 11.2 (10.0-19.0); CHLORIDE 119 mMol/L (96-110); SODIUM 148 mMol/L (135-145); TOTAL BILIRUBIN 0.2 mg/dL (0.0-1.5)
--- NOTE | 2017-03-13 06:52 | NUR ---
Significant Event: Patient alert and oriented x3. Emotional this shift. SBP was 202 after first assessment. 4ml IV Labetalol given x1 with results. SBP 130s-150s since. All other vital signs stable. On RA. No complaints of pain this shift. IV Meropenem x2 to Rt. chest port. Refused Miralax this shift. No BM. 1350ml uop from urostomy. Ate little this shift. Patient calm and cooperative with all cares. Follow up: Work with PT/OT today.
--- NOTE | 2017-03-14 04:21 | NUR ---
Significant Event: Patient alert and oriented x3. SBP 140s-160s this shift. All other vital signs stable. On RA. No complaints of pain. Up with 1 assist, walker, and gaitbelt in room. Accucheck at HS was 192. No coverage given per sliding scale. Right chest port saline locked. 1200ml uop this shift. Refused scheduled Miralax. States appetite is much better. Calm and cooperative with all cares. Follow up: Home today?
[2017-03-14 04:26] LABS: BLOOD UREA NITROGEN 24 mg/dL (6-24); CO2 24 mMol/L (22-32); ESTIMATED GFR (MDRD EQUATION) > 60; MAGNESIUM 1.6 mg/dL (1.8-2.6); PHOSPHORUS 2.6 mg/dL (2.5-4.9); POTASSIUM 4.4 mMol/L (3.7-5.1)
[2017-03-14 04:28] LABS: ANION GAP 9.4 (10.0-19.0); CHLORIDE 117 mMol/L (96-110); SODIUM 146 mMol/L (135-145)
--- NOTE | 2017-03-14 13:06 | NUR ---
PT MOVED TO NO RISK INTAKE IMPROVED TO 50-100%. WILL CONT ENSURE CLEAR BID. WILL ASSIST NEEDED.
--- NOTE | 2017-03-14 19:26 | NUR ---
Significant Event: Alert & oriented. VSS, afebrile, room air. SBA. R)chest port SL. 2 grams IV Mag given. Ferrlicet given at 1519 over 1 hour, at shift change pt complained of nausea, also flushed, somewhat diaphoretic & hypertensive. Zofran given. Urostomy with 1100 inoutput Follow up: Second dose of IV Iron tomorrow then DC home?
[2017-03-15 04:59] LABS: ALBUMIN 2.5 gm/dL (3.5-5.0); ANION GAP 9.2 (10.0-19.0); BLOOD UREA NITROGEN 20 mg/dL (6-24); CALCIUM 9.3 mg/dL (8.5-10.5); CO2 24 mMol/L (22-32); ESTIMATED GFR (MDRD EQUATION) > 60; MAGNESIUM 1.6 mg/dL (1.8-2.6); PHOSPHORUS 3.2 mg/dL (2.5-4.9); POTASSIUM 4.2 mMol/L (3.7-5.1); SODIUM 145 mMol/L (135-145)
[2017-03-15 05:02] LABS: CHLORIDE 116 mMol/L (96-110)
--- NOTE | 2017-03-15 05:05 | NUR ---
Significant Event: A/O x3. Afebrile. Denies pain. SBP 160-180s. Gave labetolol, hydralazine for blood pressures. Rt chest port w/ good blood return and saline locked. 1650 uop. cooperative with cares. Follow up: Continue to monitor per plan of care.
[2017-03-15 05:06] LABS: HEMATOCRIT 27.2 % (37.0-53.0); HEMOGLOBIN 8.4 g/dL (11.0-16.0)
[2017-03-15] MEDS ORDERED: CIPRO500 MG PO (11:00)
[2017-03-15] MEDS ORDERED: MIRALAX17 GM PO (11:06)
[2017-03-15] MEDS ORDERED: FLORASTOR250 MG PO (11:07)
--- NOTE | 2017-03-15 14:22 | NUR ---
PT DISCHARGE INSTRUCTIONS GIVEN TO PT AND DAUGHTER. DENIES PAIN. A/O AND AD FLORIDALMA IN ROOM. PORT DEACCESSED AT 1130. ILEO CONDUIT INTACT AND DRAINING MUCOUSY LISA URINE. RIGHT CHEST PORT. DISCHARGED PER WHEELCHAIR BY AIDE TO FRONT DOOR WITH DAUGHTER.
[2017-03-31] MEDS ORDERED: CULTURELLE1 CAP PO (17:16)
[2017-03-31] MEDS ORDERED: MAGNESIUM400 M1 PO (17:17)
[2017-04-07] MEDS ORDERED: DOXYCYCLINE100 MG PO (15:45)
[2017-04-07] MEDS ORDERED: VELTASSA8.4 GM PO (15:47)
[2017-05-17] MEDS ORDERED: CIPRO500 MG PO (15:17)
[2017-05-17] MEDS ORDERED: TYLENOL EXTRA500 MG PO (15:19)
== END 2017-03-15 14:21 | disposition disaster alternative care site (69) | DRG 872 ==
LOC: GPCU 16:32
PROVIDERS: Internal Medicine; Nurse Practitioner Acute Care; ADMIT Internal Medicine
DX: A41.9 Sepsis, unspecified organism (principal); I47.2 Ventricular tachycardia; E87.2 Acidosis; E11.22 Type 2 diabetes mellitus with diabetic chronic kidney disease; E87.0 Hyperosmolality and hypernatremia; R18.8 Other ascites; N17.9 Acute kidney failure, unspecified; N18.3 Chronic kidney disease, stage 3 (moderate); C67.9 Malignant neoplasm of bladder, unspecified; N10 Acute pyelonephritis; I48.92 Unspecified atrial flutter; N13.30 Unspecified hydronephrosis; R65.20 Severe sepsis without septic shock; I12.9 Hypertensive chronic kidney disease with stage 1 through stage 4 chronic kidney disease, or unspecified chronic kidney disease; D50.9 Iron deficiency anemia, unspecified; D63.1 Anemia in chronic kidney disease; E78.5 Hyperlipidemia, unspecified; E87.5 Hyperkalemia; Z93.6 Other artificial openings of urinary tract status; I27.2 Other secondary pulmonary hypertension; E83.42 Hypomagnesemia; E87.6 Hypokalemia; I25.10 Atherosclerotic heart disease of native coronary artery without angina pectoris; L98.9 Disorder of the skin and subcutaneous tissue, unspecified; Z92.21 Personal history of antineoplastic chemotherapy; K21.9 Gastro-esophageal reflux disease without esophagitis; M15.9 Polyosteoarthritis, unspecified; I48.0 Paroxysmal atrial fibrillation; E11.40 Type 2 diabetes mellitus with diabetic neuropathy, unspecified; K59.00 Constipation, unspecified; Z79.82 Long term (current) use of aspirin
CPT/HCPCS: C9113; J0360; J0610; J0696; J1200; J1335; J1644; J2185; J2405; J2916; J3475; J7030; J7040; J7050; J7120; Q9967

== ENCOUNTER → 2017-03-28 | Outpatient (CLI) | payer OTHER ==
[~2017-03-28] MED LIST changes: +CIPRO500 MG PO; +CULTURELLE1 CAP PO; +DOXYCYCLINE100 MG PO; +FLORASTOR250 MG PO; +GLYBURIDE5 MG; +LASIX20 MG; +LASIX20 MG PO; +MIRALAX17 GM PO; +VELTASSA8.4 GM PO; +ZYVOX600 MG PO; +[UNRECOGNIZED DRUG - OTHER] TOP
== END | disposition disaster alternative care site (69) ==
LOC: GRAD 16:30
DX: N28.9 Disorder of kidney and ureter, unspecified (principal)

== ENCOUNTER → 2017-03-31 | Outpatient (CLI) | payer OTHER ==
[2017-03-31 17:36] LABS: BASOPHIL % 0.4 %; EOSINOPHIL # 0.5 K/uL (0.0-0.5); EOSINOPHIL % 8.6 %; HEMATOCRIT 25.9 % (37.0-53.0); HEMOGLOBIN 8.2 g/dL (11.0-16.0); IMMATURE GRANULOCYTE # 0.1 K/uL (0.0-0.3); IMMATURE GRANULOCYTE % 1.9 %; LYMPHOCYTE # 0.9 K/uL (0.8-4.0); LYMPHOCYTE % 15.9 %; MCH 30.7 pg (27.0-34.0); MCHC 31.7 gm/dL (32.0-36.5); MONOCYTE # 0.7 K/uL (0.0-1.0); MONOCYTE % 12.4 %; MPV 9.1 fl (9.4-12.4); NEUTROPHIL # (ANC) 3.2 K/uL (1.4-9.0); NEUTROPHIL % 60.8 %; NRBC % 0 /100WBC (0-0.00); PLATELET COUNT 178 K/uL (150-450); RBC 2.67 M/uL (3.50-5.50); RDW-CV 14.4 % (11.9-14.6); WBC 5.3 K/uL (4.0-11.0)
== END | disposition disaster alternative care site (69) ==
LOC: GOPD 16:30
PROVIDERS: Internal Medicine Nephrology
DX: I89.8 Other specified noninfective disorders of lymphatic vessels and lymph nodes (principal); N13.9 Obstructive and reflux uropathy, unspecified
CPT/HCPCS: J2001

== ENCOUNTER → 2017-04-04 | Outpatient (CLI) | payer OTHER | END | disposition disaster alternative care site (69) | LOC: GRAD 15:00 | DX: I89.8 Other specified noninfective disorders of lymphatic vessels and lymph nodes (principal); N18.3 Chronic kidney disease, stage 3 (moderate); R93.8 Abnormal findings on diagnostic imaging of other specified body structures ==

== ENCOUNTER 2017-04-11 13:45 | Observation (INO) | payer OTHER ==
[~2017-04-11] VITALS: Ht 177.8 cm; Wt 107.7 kg
--- NOTE | ~2017-04-11 | HP ---
PATIENT'S NAME: FARIDA VINSON [facility] AGE: 61 Y [address] ROOM: [address] [address] [place] [facility] [place] DATE: 04/11/2017 History & Physical DISCHARGE DATE: FAMILY PHYSICIAN: SHYANN MIKE ATTENDING PHYSICIAN: FELICE KIMBLE DATE OF SERVICE: CHIEF COMPLAINT: Obstructive uropathy. HISTORY OF PRESENT ILLNESS: This is a 61-year-old male with a history of recent bladder cancer, status post resection and ileal conduit placement and also status post chemotherapy following that, who presents here for observation after having a drain placed by Urology, Dr. Jaffe, for persistent obstructive uropathy and left-sided hydronephrosis. The patient is admitted for observation overnight following this procedure. The patient is also noted to have EDIN on CKD as well as recurrent urinary tract infections with polymicrobial infections. From an infection standpoint, the patient does not seem to have symptoms. Denies any fevers, chills, and no systemic signs and symptoms of an acute infection relating to his complicated urinary tract infection and his history. The patient also denies any chest pain, shortness of breath, dizziness, lightheadedness, fever, or chills. PAST MEDICAL HISTORY: Hypertension; coronary artery disease; type 2 diabetes; CKD stage 3; hyperlipidemia; bladder cancer, status post cystoprostatectomy with an ileal conduit formation FAMILY HISTORY: Father had prostate cancer. Mother had breast cancer. 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 No ongoing toxic habits noted. Denies any history of smoking, alcohol use. MEDICATIONS: Per MAR. REVIEW OF SYSTEMS: All systems have been reviewed and were all negative except as described in the HPI. PHYSICAL EXAMINATION: PATIENT'S NAME: FARIDA VINSON [facility] AGE: 61 Y [address] ROOM: [address] [address] LOCATION: [facility] [place]MIT DATE: 04/11/2017 History & Physical DISCHARGE DATE: FAMILY PHYSICIAN: SHYANN MIKE ATTENDING PHYSICIAN: FELICE KIMBLE VITAL SIGNS: Blood pressure 139/64, pulse 89, temperature 98.3, saturating 100% on room air. GENERAL: The patient is awake, alert, oriented x3, in no acute distress. HEENT: Conjunctival pallor noted. No scleral icterus noted. CHEST: Clear to auscultation bilaterally. HEART: S1, S2, regular rate and rhythm. ABDOMEN: Soft, nontender, nondistended. Ileal conduit site noted. New ANDERS drain draining serosanguineous fluid. MUSCULOSKELETAL: No joint effusion, swelling, or erythema noted. SKIN: Without rash or lesions. NEUROLOGIC: Grossly nonfocal. ASSESSMENT AND PLAN: 1. Obstructive uropathy with signs of left hydronephrosis. The patient is status post drain placement by Dr. Jaffe, and he is admitted for overnight observation. 2. History of bladder cancer, status post resection of a bladder with ileal conduit formation. 3. Recurrent urinary tract infections with polymicrobial organisms. The patient apparently had outpatient urine cultures that showed enterococcus that is resistant to multiple antibiotics except Zyvox. We will put the patient on Zyvox and monitor. 4. Left hydronephrosis. Management as #1. 5. Anemia of chronic disease. We will continue his iron replacement therapy. 6. Chronic kidney, 3. This is perhaps in relations to his known obstructive uropathy. We will get baseline labs. Today, baseline creatinine around 1.0. 7. Deep venous thrombosis prophylaxis. We will use SCDs noting recent procedure and serosanguineous drainage from the drain placed today. MD TESS RENDON/armando /[id number] D: [id number] T: [id number] HISTORY & PHYSICAL
--- NOTE | ~2017-04-11 | CON ---
PATIENT'S NAME: FARIDA [facility]IN[facility] AGE: 61 Y [address] ROOM: [place] [address] [place] [facility] [place]: 04/11/2017 Consultation DISCHARGE DATE: 04/12/2017 FAMILY PHYSICIAN: Crys Urena ATTENDING PHYSICIAN: Nona Marx DATE OF CONSULTATION: 04/12/2017 REFERRING PHYSICIAN: Madi Jaffe MD This is a [facility] Nephrology consultation. REASON FOR CONSULTATION: Recurrent severe UTI with resistant organisms as well as collection around the ileal conduit, seroma versus lymphocele. HISTORY OF PRESENT ILLNESS: This is a 61-year-old male patient, who is well known to Dr. Nash, who presents with a quite complicated recent past medical history including recent bladder and prostate resection due to cancer with ileal conduit placement and chemotherapy with Dr. Jaffe. The patient is noted to have a rapidly accumulating collection around the new bladder. Therefore, Dr. Jaffe does recommend the patient be admitted for further evaluation of the type of fluid and whether it be seroma versus a lymphocele. The patient does have a past medical history of chronic inquired complicated urinary tract infections that have now grown Enterococcus. The patient has recently been treated with ciprofloxacin, Rocephin, and doxycycline. Therefore, due to the patient's history of recurrent UTIs with CKD stage III, Dr. Nash has been asked to consult on the patient while he is hospitalized. The patient was last seen in Dr. Nash's office on 04/04/2017. At that time, the patient's kidney function continued to improve with aggressive hydration both internal and parenteral. He continued to have high urine outputs and a small dose of loop diuretic was added to his medication regimen. The patient was also started on Veltassa for hyperkalemia at that time. PAST MEDICAL HISTORY: As listed above includin. Hypertension. 2. Diabetes mellitus. 3. Diabetic neuropathy. 4. Hyperlipidemia. 5. Bladder cancer status post radiation, chemotherapy and cystoprostatectomy in January of 2017. 6. Nonobstructive coronary artery disease. PATIENT'S NAME: FARIDA [facility]INSON [facility] AGE: 61 Y [address] ROOM: [place] [address] [place] [facility] [place]: 04/11/2017 Consultation DISCHARGE DATE: 04/12/2017 FAMILY PHYSICIAN: Crys Urena ATTENDING PHYSICIAN: Nona Marx 7. Sepsis secondary to pyelonephritis and septic ATN. 8. EDIN. 9. Urinary tract infection. 10. Cervical radiculopathy. 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 12. 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 PAST SURGICAL HISTORY: 1. Ileal conduit formation status post cystoprostatectomy. 2. Cystoprostatectomy. 3. Frequent drainage of the collection system by Interventional Radiology around the neobladder. FAMILY HISTORY: Reviewed and is significant for prostate cancer in his father and his mother had breast cancer. He denies any history of kidney disease or dialysis. 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 He denies any illicit drug use or smoking. He denies any alcohol abuse. ALLERGIES: TO TRAMADOL. MEDICATIONS: Current home medications include: 1. Amlodipine 5 mg daily. 2. Aspirin 325 one-half hour before taking niacin. 3. Claritin 10 mg daily. 4. Doxycycline 100 mg b.i.d. 5. Lasix 20 mg daily. 6. Gabapentin 100 mg 3 times a day. 7. Glyburide 5 mg 2 tablets twice a day. 8. Hydrocodone 05/325 one tablet q.4 hours as needed for pain. 9. Iron supplement 325 mg one tablet daily. 10. Levemir 30 units at bedtime. 11. Metoprolol succinate 200 mg one tablet twice a day. 12. Niacin 500 mg one tablet daily. 13. Osteo Bi-Flex one tablet daily. 14. Prilosec 40 mg twice a day. 15. Compazine 10 mg one tablet q.6 hours as needed for nausea. 16. Ranitidine 75 mg daily. 17. Simvastatin 40 mg daily. 18. Spironolactone 25 mg daily. 19. Stool softener 100 mg twice a day. PATIENT'S NAME: FARIDA [facility] AGE: 61 Y [address] ROOM: [address] [address] [place] [facility] [place]: 04/11/2017 Consultation DISCHARGE DATE: 04/12/2017 FAMILY PHYSICIAN: Crys Urena ATTENDING PHYSICIAN: Fritz Ray,Abhisekh 20. Terazosin 1 mg daily at bedtime. 21. Trospium 20 mg one tablet twice a day. 22. VESIcare 5 mg daily. 23. Vitamin C 500 mg 2 tablets daily. 24. Veltassa 8.4 g oral packet one packet twice a day. 25. Valsartan/hydrochlorothiazide 325/12.5 one tablet daily. REVIEW OF SYSTEMS: GENERAL: He denies any new fevers. He does report chills. EYES: No double vision or blurred vision. NOSE: No epistaxis or rhinorrhea. MOUTH: No gingival bleeding. THROAT: No sore throat, hoarseness, or cough. RESPIRATORY: Denies new cough or hemoptysis. Denies new shortness of breath. GASTROINTESTINAL: Positive for some nausea, however, this has improved. He denies any diarrhea. Denies any hematemesis or hematochezia. CARDIOVASCULAR: Denies any chest pain or palpitations. MUSCULOSKELETAL: Denies any new arthralgias or myalgias. IMMUNOLOGIC: See HPI. GENITOURINARY: See HPI. PSYCHIATRIC: Denies depression or anxiety. PHYSICAL EXAMINATION: VITAL SIGNS: Blood pressure is 139/64, pulse 89, temperature is 98.3, and saturations 100% on room air. GENERAL: On exam, this is a very pleasant, alert and oriented, white male who appears his approximate stated age. He is in no acute distress. HEENT: His head is normocephalic and atraumatic. Eyes: Pupils are equal and reactive to light and accommodation. EOMs are intact. Nose: Midline. Mouth: No gingival bleeding. Throat is without lymphadenopathy, carotid bruits, or JVD. LUNGS: Lung sounds are clear to auscultation anteriorly and posteriorly. CARDIOVASCULAR: Regular rate and rhythm with normal S1 and S2. No appreciable murmurs, rubs, or thrills. ABDOMEN: Soft, nontender, and nondistended. Bowel sounds positive. GENITOURINARY: Ileal conduit site is noted. New ANDERS drain draining serosanguineous fluid is noted in the left lower abdomen. MUSCULOSKELETAL: No joint effusions, swelling, or arrhythmia noted. SKIN: Without lesions or rashes. NEUROLOGIC: Cranial nerves 2 through 12 are grossly intact. LABORATORY DATA: WBCs 8.1, hemoglobin 8.8, hematocrit 27.8, and platelets are 167. ASSESSMENT AND PLAN: PATIENT'S NAME: FARIDA [facility] AGE: 61 Y [address] ROOM: [id number] [place] [address] [place] [facility] [place]: 04/11/2017 Consultation DISCHARGE DATE: 04/12/2017 FAMILY PHYSICIAN: Crys Urena ATTENDING PHYSICIAN: Nona Marx 1. Recurrent severe urinary tract infection with resistant organisms. The patient is going to be placed on Zyvox at 600 mg p.o. b.i.d. x3 weeks. 2. Rapidly accumulating collection around the neobladder. The patient is status post drain insertion. He continues to have high outputs. We will obtain sodium, potassium, urea, nitrogen, and creatinine as well as chylomicron and lipid panel. We will send this sample for cytology with a differential count. Further recommendations will be forthcoming. 3. This patient has been seen and assessed by Dr. Nash. His care is being conducted in consultation Dr. Nash as well as me. We will plan further recommendations as they are forthcoming. QUE ORTIZ DNP, MEDICAL RECORDS SECRETARY FOR MD ROHAN EDEN/faithl /[id number] d: 04/13/17 1333 t: 04/18/17 1529, CONSULTATION REPORT
--- NOTE | ~2017-04-11 | DS ---
PATIENT'S NAME: FARIDA VINSON [facility] AGE: 61 Y [address] ROOM: [place] [address] LOCATION: [facility] [place] ADMIT DATE: 04/11/2017 Discharge Summary DISCHARGE DATE: 04/12/2017 FAMILY PHYSICIAN: Crys Urena ATTENDING PHYSICIAN: Nona Maxr PRIMARY DIAGNOSES: 1. Obstructive uropathy. 2. Lymphocele around neobladder, status post IR drain placement. 3. Left hydronephrosis. 4. Urinary tract infection, recurrent - polymicrobial. 5. Chronic kidney disease, stage 3. 6. Hypertension. 7. Diabetes mellitus type 2. 8. Bladder cancer, status post cystoprostatectomy and ileal conduit. 9. Coronary artery disease. OPERATIONS OR PROCEDURES: None. HISTORY OF PRESENTING ILLNESS/REASON FOR ADMISSION: Please refer to the H and P dictated on 04/11/[address] Salidvar. HOSPITAL COURSE: The patient was admitted to the hospital as noted above at the request of Dr. Nash, Nephrology, with suspected lymphocele. He was seen and evaluated in coordination with both Nephrology and Urology services. His clinical condition was stable at the point of his hospitalization. He was placed on IV antibiotic therapy with linezolid. He tolerated that well and remained afebrile over the course of his hospital stay. By the second day, it was felt that he would be stable enough for discharge to home with plans for close clinical followup with Dr. Urena and Dr. Nash as well as Dr. Jaffe. DISCHARGE INSTRUCTIONS: DIET: ADA 2000-calorie per day as tolerated. ACTIVITY: As tolerated. MEDICATIONS: 1. Amlodipine 5 mg p.o. q.a.m. 2. Vitamin C 500 mg p.o. b.i.d. 3. Iron 325 mg p.o. b.i.d. 4. Gabapentin 100 mg p.o. b.i.d. 5. Levemir insulin 10 units subcu q.h.s. 6. Lactobacillus cap daily. PATIENT'S NAME: FARIDA VINSON [facility] AGE: 61 Y [address] ROOM: [address] [address] LOCATION: [facility] [place] ADMIT DATE: 04/11/2017 Discharge Summary DISCHARGE DATE: 04/12/2017 FAMILY PHYSICIAN: Crys Urena ATTENDING PHYSICIAN: Nona Marx 7. Loratadine 10 mg p.o. daily. 8. Mag oxide 400 mg p.o. b.i.d. 9. Metoprolol 50 mg p.o. b.i.d. 10. Niacin 500 mg p.o. q.h.s. 11. Omeprazole 40 mg p.o. b.i.d. 12. Simvastatin 40 mg p.o. q.h.s. 13. Albuterol HFA 2 puffs p.o. q.6 hours p.r.n. wheezing or dyspnea. 14. Glyburide 10 mg p.o. daily. 15. Glucosamine with Boswellia 1 tablet p.o. daily. 16. Ranitidine 75 mg p.o. daily. 17. Mylanta 30 mL p.o. daily p.r.n. 18. Systane ophthalmic drops 2 drops each eye b.i.d. 19. Aspirin 81 mg p.o. daily. 20. Artificial tears 2 drops b.i.d. p.r.n. 21. MiraLAX 17 g p.o. daily. 22. Veltassa 1 packet p.o. q.a.m. 23. Zyvox 600 mg p.o. b.i.d. x1 week. 24. Lasix 20 mg p.o. daily. FOLLOWUP: He will follow up with Dr. Urena with a CBC and basic metabolic profile in 3 to 5 days. He will follow up with Dr. Nash, Nephrology in [place], on 05/16/2017 and follow up with Dr. Jaffe in [place] on 05/02/2017. CONDITION ON DISCHARGE: Fair. Total time spent on discharge process 40 minutes. MD VANCE MARTINEZ/armando /[id number] d: 04/13/17 0027 t: 04/15/17 1618, DISCHARGE SUMMARY
[~2017-04-11 13:45] MED LIST changes: -GLYBURIDE5 MG; -LASIX20 MG; -LASIX20 MG PO; -ZYVOX600 MG PO; -[UNRECOGNIZED DRUG - OTHER] TOP
[2017-04-11 14:30] LABS: INR - (THERAPEUTIC) 0.98 (0.92-1.07); PROTIME 10.3 SECONDS (9.8-11.4)
--- NOTE | 2017-04-11 20:51 | NUR ---
51 Y/O MALE ADMITTED FOR SEVERE UTI / SEPSIS. PT HAD A RENAL CYST WITH DRAIN TUBE PLACED TODAY TO DRAINE A SEROMA/LYMPHOCELE. PT HAD 500CC DRAINED FROM THIS IN MARCH WELL. SINCE PT LAST ADMISSION HE HAS ALSO HAD A CARDIAC STRESS TEST IN MARCH. ALLERGY - TRAMADOL MEDICAL & SURGICAL HISTORY - DMII, BLADDER CANCER WITH A UROSTOMY 02/17/17, HTN, MURMUR, A-FIB/FLUTTER, BILAT LOWER LEG EDEMA, BLADDER CANCER WITH LAST CHEMO LAST JANUARY-FEBRUARY. BPH, GERD, HEATBURN, ARTHRITIS, NECK FUSION, SOB WITH EXERTION, HX DEPRESSION & ANXIETY, STAGE 3 KIDNEY DISEASE, TURBT SEVERAL TIMES, CYSTO, RETRO, BLADDER BX, ACDF 08/2016, LILIYA STANTON, NON SMOKER, NON DRINKER REPORT GIVEN TO PT PRIMARYC CARE NURSE MERVAT MURRAY
[2017-04-11 22:52] LABS: BASOPHIL % 0.5 %; EOSINOPHIL # 0.2 K/uL (0.0-0.5); EOSINOPHIL % 3.1 %; HEMATOCRIT 28.4 % (37.0-53.0); HEMOGLOBIN 8.8 g/dL (11.0-16.0); IMMATURE GRANULOCYTE # 0.1 K/uL (0.0-0.3); IMMATURE GRANULOCYTE % 1.2 %; LYMPHOCYTE # 0.9 K/uL (0.8-4.0); LYMPHOCYTE % 14.6 %; MCH 29.3 pg (27.0-34.0); MCV 94.7 fl (83.0-98.0); MONOCYTE # 0.7 K/uL (0.0-1.0); MONOCYTE % 10.1 %; MPV 9.1 fl (9.4-12.4); NEUTROPHIL # (ANC) 4.5 K/uL (1.4-9.0); NEUTROPHIL % 70.5 %; NRBC % 0 /100WBC (0-0.00); PLATELET COUNT 178 K/uL (150-450); RDW-CV 13.7 % (11.9-14.6); WBC 6.4 K/uL (4.0-11.0)
[2017-04-11 23:05] LABS: ANION GAP 11.6 (10.0-19.0); CALCIUM 9.1 mg/dL (8.5-10.5); CREATININE 1.4 mg/dL (0.6-1.3); MAGNESIUM 1.5 mg/dL (1.8-2.6); PHOSPHORUS 4.1 mg/dL (2.5-4.9); POTASSIUM 4.6 mMol/L (3.7-5.1)
--- NOTE | 2017-04-12 03:03 | NUR ---
SIGNIFICANT EVENT: Patient is here for observation/antibiotics after PSCC procedure to drain kidney abscess. Full code. Hypertensive at times, other VSS on RA. Urostomy bag to R) mid abdomen - flush x1 daily. Drain to R) Lower abd/pelvis. ACHS accuchecks - HS BG of 104, no levemir or novolog. SBA. Intermittent IV antibiotics to L) hand. Daughter at bedside. Pleasant and cooperative with cares.
[2017-04-12 08:37] LABS: BASOPHIL % 0.4 %; EOSINOPHIL # 0.2 K/uL (0.0-0.5); EOSINOPHIL % 2.3 %; HEMATOCRIT 27.8 % (37.0-53.0); HEMOGLOBIN 8.8 g/dL (11.0-16.0); IMMATURE GRANULOCYTE # 0.1 K/uL (0.0-0.3); LYMPHOCYTE # 0.7 K/uL (0.8-4.0); LYMPHOCYTE % 8.7 %; MCH 29.5 pg (27.0-34.0); MCHC 31.7 gm/dL (32.0-36.5); MCV 93.3 fl (83.0-98.0); MONOCYTE % 11.8 %; MPV 8.5 fl (9.4-12.4); NEUTROPHIL # (ANC) 6.2 K/uL (1.4-9.0); NEUTROPHIL % 75.8 %; NRBC % 0 /100WBC (0-0.00); PLATELET COUNT 167 K/uL (150-450); RBC 2.98 M/uL (3.50-5.50); RDW-CV 13.8 % (11.9-14.6); WBC 8.1 K/uL (4.0-11.0)
[2017-04-12 08:54] LABS: ALBUMIN 2.9 gm/dL (3.5-5.0); ANION GAP 11.8 (10.0-19.0); CALCIUM 9.1 mg/dL (8.5-10.5); CREATININE 1.4 mg/dL (0.6-1.3); PHOSPHORUS 3.9 mg/dL (2.5-4.9); POTASSIUM 4.8 mMol/L (3.7-5.1)
[2017-04-12 11:02] LABS: PERITONEAL FLUID TURBIDITY 1+ (CLEAR)
[2017-04-12] MEDS ORDERED: [UNRECOGNIZED DRUG - OTHER] TOP (11:41)
[2017-04-12 11:47] LABS: % PERITONEAL FLUID MONO/MACRO 21 % (0-0)
[2017-04-12] MEDS ORDERED: LASIX20 MG (11:54)
[2017-04-12] MEDS ORDERED: GLYBURIDE5 MG (11:54)
[2017-04-12] MEDS ORDERED: LASIX20 MG PO (14:30)
[2017-04-12] MEDS ORDERED: ZYVOX600 MG PO (14:31)
--- NOTE | 2017-04-12 16:14 | NUR ---
Significant event: Patient is alert and oriented. VSS. on room air. IV dc'd with no complications. Pt switched from dependent drain bag to just the ileioconduit bag. Drain bag was attached to thigh with strap. Both emptied before leaving. Education copies were given. Discharge instructions were given to patient along with drain flow sheet and prescriptions. Verbalized understanding of all follow up appts. Dghtr present. Wheeled to [facility] for home.
--- NOTE | 2017-04-12 17:50 | NUR ---
DISCHARGE: Pt. and daughter were explained discharge instructions, educated on drain care, urostomy home care, and new medication: zyvox. No questions or concerns. Verbalized understanding of teaching. Left with all belongings and prescriptions. Primary nurse removed IV and gave patient drain output recording sheet. Patient taken to front door by aide and driven home by daughter.
[2017-05-17] MEDS ORDERED: CIPRO500 MG PO (15:17)
[2017-05-17] MEDS ORDERED: TYLENOL EXTRA500 MG PO (15:19)
== END 2017-04-12 15:25 | disposition disaster alternative care site (69) ==
LOC: GOPD 13:45 → GMSU 17:26
PROVIDERS: Internal Medicine Nephrology; Radiology Diagnostic Radiology; ADMIT Internal Medicine
PROC: 0W9J30Z Drainage of Pelvic Cavity with Drainage Device, Percutaneous Approach (ICD-10-PCS; principal; 2017-04-11)
DX: N13.30 Unspecified hydronephrosis (principal); I89.8 Other specified noninfective disorders of lymphatic vessels and lymph nodes; N39.0 Urinary tract infection, site not specified; I12.9 Hypertensive chronic kidney disease with stage 1 through stage 4 chronic kidney disease, or unspecified chronic kidney disease; E11.22 Type 2 diabetes mellitus with diabetic chronic kidney disease; N18.3 Chronic kidney disease, stage 3 (moderate); I25.10 Atherosclerotic heart disease of native coronary artery without angina pectoris; E78.5 Hyperlipidemia, unspecified; E11.40 Type 2 diabetes mellitus with diabetic neuropathy, unspecified; Z90.49 Acquired absence of other specified parts of digestive tract; Z85.51 Personal history of malignant neoplasm of bladder; Z92.3 Personal history of irradiation; Z92.21 Personal history of antineoplastic chemotherapy; Z88.8 Allergy status to other drugs, medicaments and biological substances; Z79.82 Long term (current) use of aspirin; Z79.899 Other long term (current) drug therapy
CPT/HCPCS: A9270; G0378; J2001; J2020; J3010; J7050

== ENCOUNTER → 2017-04-28 | Outpatient (CLI) | payer OTHER ==
[~2017-04-28] MED LIST changes: +GLYBURIDE5 MG; +LASIX20 MG; +LASIX20 MG PO; +ZYVOX600 MG PO; +[UNRECOGNIZED DRUG - OTHER] TOP
== END | disposition disaster alternative care site (69) ==
LOC: GRAD 14:30
DX: Z46.82 Encounter for fitting and adjustment of non-vascular catheter (principal)
CPT/HCPCS: J1644

== ENCOUNTER → 2017-05-19 | Outpatient (CLI) | payer OTHER | END | disposition disaster alternative care site (69) | LOC: GOPD 05-17 | DX: R78.0 Finding of alcohol in blood (principal) | CPT/HCPCS: J1644; J2001; J2250; J3010; J7040 ==